=== PATIENT | male | born 1955 | race Caucasian/White ===

== ENCOUNTER → 2023-02-18 13:26 | Outpatient (CLI) | payer MEDICARE, SELFPAY ==
--- NOTE | ~2023-02-18 | CT_ITS ---
EXAMINATION: CT abdomen pelvis wo con DATE: 02/18/2023 13:41 INDICATION: History of urolithiasis TECHNIQUE: Computed tomography (CT) of the abdomen and pelvis was performed without intravenous contr ast. The dose-length product (DLP) was 849.62 mGy-cm. Automated exposure control and iterative recons truction technique were employed. COMPARISON: 11/25/2011 FINDINGS: Minimal dependent atelectasis is present in the lung bases. The heart size is normal. Calci fied pulmonary nodules and calcified right hilar lymph nodes are consistent with old granulomatous di sease. Punctate calcifications in an otherwise normal spleen likely represent healed granulomatous di sease. There is a 4.1 cm mass of the left hepatic lobe previously characterized as a hemangioma. The spleen, pancreas, and adrenal glands are normal. There is a 3.1 cm soft tissue density partially exop hytic mass of the left mid kidney. There is an 11 mm cyst of the right kidney. No stones are identifi ed in the kidneys, ureters, or bladder. No hydronephrosis or hydroureter. No pathologically enlarged abdominal or pelvic lymph nodes are identified. No free intraperitoneal gas or evidence of bowel obst ruction. The appendix is normal. There is an umbilical hernia containing fat. There is mild lumbar sp ondylosis. IMPRESSION: 1. Left kidney mass concerning for renal cell carcinoma. Further evaluation by MRI or CT without and with contrast is recommended. 2. No urolithiasis identified. Reviewed, dictated and finalized at location B.
== END ==
PROVIDERS: PCP Internal Medicine; Visit Provider Internal Medicine
DX: R10.9 Unspecified abdominal pain (principal); Z87.442 Personal history of urinary calculi
CPT/HCPCS: 74176

== ENCOUNTER → 2023-03-04 08:28 | Outpatient (CLI) | payer MEDICARE, SELFPAY ==
--- NOTE | ~2023-03-04 | MR_ITS ---
MRI of the abdomen: Clinical indication: Left renal mass. Technique: Coronal SSFSE ARC, WATER:coronal LAVA-FLEX, Coronal 2D FIESTA FatSat, Axial SSFSE BH ARC, Axial 3D DualEcho BH, Axial SSFSE-IR, Axial DWI b=500, Axial 2D FIESTA FatSat, pre and dynamic postco ntrast Axial LAVA ARC, postcontrast Coronal In and Opposed phase LAVA FLEX. Following intravenous adm inistration of 20 cc MultiHance gadolinium, T1-weighted fat-sat imaging was performed in the axial an d coronal planes. Comparison: CT scan dated 02/18/2023 Findings: Gallbladder is unremarkable. The common bile duct is normal in course and caliber. No filli ng defects are seen within the CBD. No evidence of intrahepatic biliary ductal dilatation. The pancre atic duct is normal in size. There is probable mild diffuse signal drop off in the liver on out of phase images relative to in pha se images, consistent with diffuse fatty infiltration. There is a lobulated T2 hyperintense lesion me asuring 5.7 cm and the left hepatic lobe, with discontinuous peripheral nodular enhancement with prog ressive fill in. There is a smaller, similar appearing lesion in the posterior right hepatic lobe, me asuring 1.6 cm in diameter. These are consistent with hemangiomas. There is a 3.3 cm ovoid mass in the left kidney, T1 and T2 hypointense, with probable mild postcontra st enhancement. Small simple right renal cyst noted. No hydronephrosis. Adrenal glands, spleen, and p ancreas are unremarkable. No lymphadenopathy. No aortic aneurysm. No ascites. Impression: 3.3 cm circumscribed left renal mass, with mild postcontrast enhancement. Postcontrast enhancement in dicates a solid lesion, and renal cell carcinoma is a consideration, versus other solid masses. Tissu e sampling or resection advised. Hepatic hemangiomas, as detailed above. Reviewed, dictated and finalized at location . Impression: 3.3 cm circumscribed left renal mass, with mild postcontrast enhancement. Postc ontrast enhancement indicates a solid lesion, and renal cell carcinoma is a con sideration, versus other solid masses. Tissue sampling or resection advised. Hepatic hemangiomas, as detailed above.
== END ==
PROVIDERS: PCP Internal Medicine; Visit Provider Internal Medicine
DX: N28.89 Other specified disorders of kidney and ureter (principal); D18.09 Hemangioma of other sites
CPT/HCPCS: 74183; A9577

== ENCOUNTER → 2023-08-14 10:23 | Outpatient (CLI) | payer MEDICARE, SELFPAY ==
--- NOTE | ~2023-08-14 | CT_ITS ---
EXAMINATION: CT abdomen wo/w con DATE: 08/14/2023 10:53 INDICATION: Malignant neoplasm of the left kidney TECHNIQUE: Computed tomography (CT) of the abdomen was performed without then with 100 mL Omnipaque 3 50 intravenous contrast. The dose-length product (DLP) was 1533.95 mGy-cm. Automated exposure control and iterative reconstruction technique were employed. COMPARISON: 02/18/2023 FINDINGS: Minimal dependent atelectasis is present in the lung bases. The heart size is normal. Calci fied pulmonary nodules and calcified right hilar lymph nodes are consistent with old granulomatous di sease. Punctate calcifications in an otherwise normal spleen likely represent healed granulomatous di sease. There is a 4.1 cm mass of the left hepatic lobe previously characterized as a hemangioma. The pancreas and adrenal glands are normal. The right kidney is unremarkable. There are changes in the le ft kidney, consistent with interval partial nephrectomy and resection of the previously described kid brad mass. No definite residual mass is identified. A fluid collection at the operative site, measurin g up to 4.3 cm, likely reflects a postoperative seroma. There are no pathologically enlarged abdomina l lymph nodes. There is calcified atherosclerosis of the aorta and many of the other arteries. No ysabel e intraperitoneal gas or evidence of bowel obstruction. Infiltration in the subcutaneous tissues of t he anterior abdominal wall to the left of midline likely reflects laparoscopic port site. IMPRESSION: 1. Changes of interval partial left nephrectomy with small postoperative seroma at the surgical site but no definite residual mass. Reviewed, dictated and finalized at location F.
[2023-08-14 10:45] LABS: Estimated Glomerular Filt Rate > 60
== END ==
PROVIDERS: PCP Internal Medicine; Visit Provider Urology
DX: C64.2 Malignant neoplasm of left kidney, except renal pelvis (principal)
CPT/HCPCS: 74170; Q9967

== ENCOUNTER 2023-10-09 13:54 | Outpatient (CLI) | payer OTHER, SELFPAY ==
--- NOTE | 2023-10-09 14:00 | ECG_ITS ---
Measurements Intervals [place] Rate: 71 P: 27 OR: 230 QRS: 42 QRSD: 84 T: 10 QT: 356 QTc: 388 Interpretive Statements SINUS RHYTHM WITH FIRST DEGREE AV BLOCK FREQUENT ATRIAL PREMATURE COMPLEXES DELAYED PRECORDIAL R/S TRANSITION BORDERLINE T WAVE ABNORMALITY- INFERIOR LEADS BASELINE ARTIFACT- I, II, III, AVR, AVL, AVF, V3 ABNORMAL ECG NO PREVIOUS ECG AVAILABLE FOR COMPARISON Electronically Signed On 10-09-2023 20:04:12 [employer]TON PULLER by Aaron Lake D.O.
[2023-10-09 14:24] LABS: Hematocrit 44.2 % (42.0-52.0); Hemoglobin 14.6 g/dL (14.0-18.0)
[2023-10-09 14:39] LABS: INR 1.9; Prothrombin Time 22.7 Seconds (11.1-14.7)
[2023-10-09 14:40] LABS: Partial Thromboplastin Time 31.6 SECONDS (22.3-36.8)
== END 2023-10-09 13:55 | disposition home or self-care (01) ==
LOC: ANHSURGERY 13:59
PROVIDERS: Anesthesiology; PCP Internal Medicine; Visit Provider Surgery Plastic and Reconstructive Surgery
DX: L57.4 Cutis laxa senilis (principal); Z79.01 Long term (current) use of anticoagulants; I10 Essential (primary) hypertension; Z01.818 Encounter for other preprocedural examination
CPT/HCPCS: 36415; 85014; 85018; 85610; 85730; 93005

== ENCOUNTER 2023-10-15 01:49 | Day surgery (SDC) | payer OTHER, SELFPAY ==
[2023-10-08 14:58] VITALS: BMI 30.3
--- NOTE | 2023-10-08 15:09 | PC.NURSE ---
PRE-OP INSTRUCTIONS, PLEASE READ CAREFULLY Report to the Outpatient Waiting Room, entrance under the green pavilion located off [facility], at time _0800_ on date _10/15/23_. Planned Procedure Time: _1000_. Time changes happen often and if your time is changed the preop area will call you the afternoon before. - You and your visitor will be asked to self-screen and do not enter if you have any COVID symptoms. - A mask is optional within the hospital at this time. Patients may have clear liquids (water, carbonated beverages, clear teas, apple juice) until 3 hours prior to surgery (0700 AM) with a maximum of 20 ounces. - No food from midnight until time of surgery Take the following medications with a SIP of water the morning of surgery: _METOPROLOL_ DO NOT STOP ANY OF YOUR OTHER PRESCRIPTION MEDICATIONS PRIOR TO SURGERY ?EXCEPT THE FOLLOWING Medications to discontinue - _WARFARIN & THEN START LOVENOX INSTRUCTED BY DR. GUTIERREZ Medications to discontinue per ANESTHESIA - _MULTIVITAMIN 3 DAYS PRIOR TO SUGERY, Date to take last dose 10/11/23_ Please no make-up, nail yakut, hairspray, perfume, deodorant, or body powder the day of surgery. No jewelry (including any body piercings) or valuables the day of surgery, leave them at home. Please take a shower or bath the night before, or the morning of, surgery with an antibacterial soap. Wear comfortable, loose fitting clothing. - Jewelry must be removed prior to entering the operating room. Rings and piercings that are not removed may be cut off. - The hospital will not accept responsibility for valuables. - Please leave all valuables, including medications, at home the day of surgery. If you are going home after surgery, a licensed motor bus driver must drive you home. - NO public transportation without another adult if you receive anesthesia. - We recommend that an adult stay with you for 24 hours following discharge. - We also recommend that you do not drive, make important decision, drink alcoholic beverages, or take any drugs that were not prescribed by your health care provider for at least 24 hours after your discharge time. Follow any additional instructions given to you from your surgeon. If you or anyone in your household have experienced Covid symptoms in the past week, please notify your surgeon or the nurse liaison at the phone number below for possible testing. Telephone instructions given to _PT'S SO - DEBBIE__and asked if any additional questions and then verbalized understanding. Patient advised to call surgeon office or pre surgery nurse liaison [phone] if any additional questions.
--- NOTE | 2023-10-14 14:30 | P.PNAN_ITS ---
Anes - Initial Pre Proc Eval Procedure: Operation Date: 10/15/23 10:00 Proposed Procedures p Face Lift - Ruben Rodriguez MD s Neck Lift - Ruben Rodriguez MD Date/Time: 10/14/23 14:30 Surgeon: Ruben Rodriguez MD Pre Op Diagnosis: Skin Laxity Patient Data Age: 68 Gender: M Height: 1.83 m Weight: 101.36 kg Allergies Allergy/AdvReac Type Severity Reaction Status Date / Time No Known Allergies Allergy Verified 10/08/23 14:52 Home Medications Medication Instructions Recorded Confirmed Type metoprolol tartrate 25 mg tablet 25 mg PO BID #180 tabs 07/23/23 10/08/23 Rx multivitamin 1 tablet DAILY 10/08/23 10/08/23 History warfarin 1 mg tablet See Rx Instructions .Route .COMPLEX 10/08/23 10/08/23 History warfarin 4 mg tablet See Rx Instructions .Route .COMPLEX 10/08/23 10/08/23 History warfarin 5 mg tablet See Rx Instructions .Route .COMPLEX 10/08/23 10/08/23 History Patient hx anesthesia problems: none Family hx anesthesia problems: none Results Review: All pre-operative results and documents have been reviewed as part of the pre- operative evaluation. [facility] Past Medical History Medical History (Updated 10/14/23 @ 14:31 by Ben Coker DO) Adenomatous colon polyp Essential (primary) hypertension RAMA on CPAP Pulmonary embolism Surgical History Surgical History H/O colonoscopy with polypectomy Family History Family History Father Family history of malignant neoplasm of stomach Patient's father is Mother Patient's mother is Family history of liver disease Social History Social History Smoking status: Never smoker Second hand tobacco smoke exposure: No Alcohol intake: never Substance use: never Substance use type: does not use Lack of Transportation: No Lack of Food: Never True Current Housing: I Have Housing Concerned About Future Housing: No Difficulty Paying Gas/Electric Bills: No Difficulty Paying for Meds: No Currently Unemployed: No Education: High School Diploma/GED Difficulty w/ Childcare or Family Care: No Living arrangements: other Additional living arrangements comments: LIVES WITH SINGIFICANT OTHER Gender identity (if verbalized by the patient): Male Spiritual care concerns: No Anes - Eval Final PreProcedure Day of Procedure 10/14/23 14:30 Patient weight: obese Heart: regular rate and rhythm Lungs: clear to auscultation Airway: Mallampati scale class III Neurological: alert and oriented Last oral intake: >/= 8 hours ASA classification: III Emergent: no Anesthetic plan: proceed Anesthesia type and monitoring: general ETT and standard monitoring Results Review: All pre-operative results and documents have been reviewed as part of the pre- operative evaluation. Informed Consent: The patient's anesthetic plan and its attendant risks and benefits were discussed with the patient/family/POA. Questions were solicited and answers provided to the satisfaction of the patient/family/POA.
[2023-10-15] VITALS (11 sets, daily range): BP systolic 119–157; BP diastolic 63–86; PULSE 58–104; RESP 12–22; TEMP 36.8–37.3; O2SAT 93–99
--- NOTE | 2023-10-15 07:01 | W.PM.PROC2 ---
Procedure Note - Detailed Date of Procedure 10/15/23 Pre-op Diagnosis Skin Laxity Post-op Diagnosis Same Procedure Performed Face / Neck lift Surgeon Ruben Rodriguez MD Anesthesia General Description of Procedure Preoperatively the risks, benefits, alternatives were discussed in extensive detail. I want her to be very realistic about the risks involved as well as expectations. Reviewed what we can and cannot accomplish. Realistic expectations of outcome. All questions were answered to satisfaction. Consent obtained. Taken to the operating room placed supine on the operating room table. Anesthesia provided by anesthesiology. Prepped and draped in standard sterile fashion. Surgical time-out was taken. Local anesthesia was provided with a tumescent solution using lidocaine, epinephrine, and TXA. Once adequate time for effect a fifteen blade used to make a submental incision. Dissection was continued down identified platysma muscle. Elevated skin flaps with good adiposity just submental. I then went sub platysmal and elevated bilateral. Dissection wsa continued until the bilateral submandibular glands were identified and ptotic. The anterior / medial capsule was incised and gland delivered. Just the superficial / ptotic gland was excised with Bovie electrocautery. Closed capsule with 2-0 Vicryl. Central subplatysmal adiposity was removed to contour. Deep fascia was transversely released at the level of the hyoid. I completed platysmal transection transversely just inferior to the hyoid and repaired the platysma centrally with 2-0 Vicryl. I then proceeded made the remainder of the incisions. I elevated skin flaps with good adequate adiposity of the deep surface to have good contour. Then using a sailboat design I entered Deep to the SMAS and a deep plane facelift was completed. I remained superficial to orbicularis. Throughout the entire procedure we monitored for twitches. A mastoid crevasse was created. I then repaired the SMAS with 2-0 Vicryl. The submandibular platysma was repaired to crevasse with 2-0 Vicryl. Copious irrigated with saline solution and verified strict hemostasis. The skin flaps were just placed into position without any tension. Trimmed as necessary. Preauricular was closed with 5-0 nylon. Postauricular with 5-0 chromic. I did rimma in the hairline. Submental was closed using 3-0 Monocryl followed by running subcuticular 4-0 Monocryl and tissue glue. Neck was secured at undermined areas with 3-0 Nylon as a hemostatic net. Dressings were placed. Patient was awoken without difficulty. All instrument sponge counts were correct at the end of the case. Estimated Blood Loss 50 Drains No Packing No Pathology None sent Complications No immediate complications Condition Stable Disposition PACU
[2023-10-15] MEDS: LACTATED RINGERS 1,000 ML 30 ML IV CONT ×2 (08:45→15:49)
[2023-10-15 08:54] LABS: Urine Cotinine NEGATIVE
[2023-10-15 09:47] LABS: Prothrombin Time 14.1 Seconds (11.1-14.7)
[2023-10-15] MEDS: TRANEXAMIC ACID 1,000MG/ISO100 1,000 MG/100 ML BAG 200 MG IVPB (09:55)
[2023-10-15] MEDS: LIDO 1%/EPINEPHRINE 1:100,000 50 ML VIAL 20 ML INFILTRATE (10:25)
[2023-10-15] MEDS: BUPivacaine HCL 0.25% PF 30 ML VIAL INFILTRATE (10:25)
[2023-10-15] MEDS: TETRACAINE HCL 0.5% OPHTH SOLN 4 ML BTL 1 DROP EACH EYE (10:25)
[2023-10-15] MEDS: NEOMYCIN/POLYMYXIN/DEXAMETH OP OINT 3.5 GM TUBE 1 APPLIC EACH EYE (10:25)
[2023-10-15] MEDS: ceFAZolin 2 GM/D5W 50 ML 2 GM/50 ML BAG IVPB (10:25)
--- NOTE | 2023-10-15 15:51 | SUR.OPER ---
EBL:20ml, Urine:300ml
[2023-10-15] MEDS: HYDROcodone/acetaminophen (*CRX) 5-325 MG TABLET 1 TAB PO (18:11)
== END 2023-10-15 18:43 | disposition home or self-care (01) ==
PROVIDERS: Anesthesiology; PCP Internal Medicine; Visit Provider Surgery Plastic and Reconstructive Surgery
PROC: (CPT 15824; principal; 2023-10-15 10:00)
PROC: (CPT 15819; 2023-10-15 10:00)
DX: L57.4 Cutis laxa senilis (principal); I10 Essential (primary) hypertension; G47.33 Obstructive sleep apnea (adult) (pediatric); E66.9 Obesity, unspecified; Z68.30 Body mass index [BMI] 30.0-30.9, adult; Z99.89 Dependence on other enabling machines and devices; Z79.01 Long term (current) use of anticoagulants; Z86.010 Personal history of colon polyps; Z86.711 Personal history of pulmonary embolism; Z80.0 Family history of malignant neoplasm of digestive organs
CPT/HCPCS: 15828; 80307; 85610; A9270; J0171; J0330; J0690; J1100; J1170; J1200; J2250; J2405; J2704; J3010; J7030; J7120

== ENCOUNTER 2024-11-02 00:32 | Day surgery (SDC) | payer MEDICARE, SELFPAY ==
[2024-10-27 11:27] VITALS: BMI 30.5
--- NOTE | 2024-10-28 15:06 | PC.NURSE ---
Spoke with patient regarding medication warfarin. Patient verbalizes understanding that the last dose is to be taken 10/28/2024 and the Endoscopist will instruct them when to restart after the procedure.
[2024-11-02 09:58] VITALS: BP 158/87; PULSE 81; RESP 18; TEMP 36.3; O2SAT 97; BMI 31.4
[2024-11-02] MEDS: LACTATED RINGERS 1,000 ML 150 ML IV CONT (10:05)
--- NOTE | 2024-11-02 10:40 | P.PNAN_ITS ---
Anes - Initial Pre Proc Eval Procedure: Operation Date: 11/02/24 11:00 Proposed Procedures p Colonoscopy - Mo Donovan MD Date/Time: 11/02/24 10:40 Surgeon: Mo Donovan MD Pre Op Diagnosis: Personal hx of colon polyps Patient Data Age: 69 Gender: M Height: 1.83 m Weight: 104.9 kg Last Vital Signs Temp 36.3 C L 11/02/24 09:58 Pulse 81 11/02/24 09:58 Resp 18 11/02/24 09:58 BP 158/87 H 11/02/24 09:58 Pulse Ox 97 11/02/24 09:58 O2 Del Method Room Air 11/02/24 09:58 Allergies Allergy/AdvReac Type Severity Reaction Status Date / Time No Known Allergies Allergy Verified 11/02/24 09:55 Home Medications ?Medication ?Instructions ?Recorded ?Confirmed ?Type multivitamin 1 tablet PO DAILY 10/08/23 11/02/24 History warfarin 5 mg tablet See Rx Instructions .Route 04/21/24 11/02/24 Rx .COMPLEX #30 tabs warfarin 1 mg tablet See Rx Instructions .Route 10/06/24 11/02/24 Rx .COMPLEX #30 tabs warfarin 4 mg tablet See Rx Instructions .Route 10/19/24 11/02/24 Rx .COMPLEX #30 tabs metoprolol tartrate 25 mg tablet 25 mg PO DAILY 10/27/24 11/02/24 History Patient hx anesthesia problems: none Family hx anesthesia problems: none Results Review: All pre-operative results and documents have been reviewed as part of the pre- operative evaluation. [facility] Past Medical History Medical History Renal mass Essential (primary) hypertension Pulmonary embolism Adenomatous colon polyp RAMA on CPAP Surgical History Surgical History H/O colonoscopy with polypectomy Family History Family History Father Family history of malignant neoplasm of stomach Patient's father is Mother Patient's mother is Family history of liver disease Social History Social History Smoking status: Never smoker Second hand tobacco smoke exposure: No Alcohol intake: never Substance use: never Substance use type: does not use Lack of Transportation: No Lack of Food: Never True Current Housing: I Have Housing Concerned About Future Housing: No Difficulty Paying Gas/Electric Bills: No Difficulty Paying for Meds: No Currently Unemployed: No Education: High School Diploma/GED Difficulty w/ Childcare or Family Care: No Living arrangements: other Additional living arrangements comments: significant other Gender identity (if verbalized by the patient): Male Spiritual care concerns: No Comments DVT Anes - Eval Final PreProcedure Day of Procedure 11/02/24 10:40 Patient weight: normal Heart: regular rate and rhythm Lungs: normal air movement Airway: Mallampati scale class III Neurological: alert and oriented Last oral intake: >/= 8 hours ASA classification: III Anesthetic plan: proceed Anesthesia type and monitoring: general GIVS and standard monitoring Results Review: All pre-operative results and documents have been reviewed as part of the pre- operative evaluation. Informed Consent: The patient's anesthetic plan and its attendant risks and benefits were discussed with the patient/family/POA. Questions were solicited and answers provided to the satisfaction of the patient/family/POA.
--- NOTE | 2024-11-02 10:41 | PM.HPGS ---
History of Present Illness History of Present Illness Consent: Risks, benefits, and alternatives have been discussed and questions answered. Patient agrees to proceed with procedure. Chief complaint: Personal hx of colon polyps Narrative: Ramón Orta Jr. is a 69 year old male with colon polyp in 2019 Review of Systems Review of Systems: All systems reviewed & are unremarkable except as noted in HPI and below PMFSH Past Medical History Medical History Renal mass Essential (primary) hypertension Pulmonary embolism Adenomatous colon polyp RAMA on CPAP Surgical History Surgical History H/O colonoscopy with polypectomy Family History Family History Father Family history of malignant neoplasm of stomach Patient's father is Mother Patient's mother is Family history of liver disease Social History Social History Smoking status: Never smoker Second hand tobacco smoke exposure: No Alcohol intake: never Substance use: never Substance use type: does not use Lack of Transportation: No Lack of Food: Never True Current Housing: I Have Housing Concerned About Future Housing: No Difficulty Paying Gas/Electric Bills: No Difficulty Paying for Meds: No Currently Unemployed: No Education: High School Diploma/GED Difficulty w/ Childcare or Family Care: No Living arrangements: other Additional living arrangements comments: significant other Gender identity (if verbalized by the patient): Male Spiritual care concerns: No Meds Home Medications and Allergies Home Medications ?Medication ?Instructions ?Recorded ?Confirmed ?Type multivitamin 1 tablet PO DAILY 10/08/23 11/02/24 History warfarin 5 mg tablet See Rx Instructions .Route 04/21/24 11/02/24 Rx .COMPLEX #30 tabs warfarin 1 mg tablet See Rx Instructions .Route 10/06/24 11/02/24 Rx .COMPLEX #30 tabs warfarin 4 mg tablet See Rx Instructions .Route 10/19/24 11/02/24 Rx .COMPLEX #30 tabs metoprolol tartrate 25 mg tablet 25 mg PO DAILY 10/27/24 11/02/24 History Allergies Allergy/AdvReac Type Severity Reaction Status Date / Time No Known Allergies Allergy Verified 11/02/24 09:55 Vital Signs Vital Signs - 24 hr 11/02/24 09:58 Temperature 97.4 F L Pulse Rate 81 Respiratory Rate 18 Blood Pressure 158/87 H Pulse Oximetry 97 Oxygen Delivery Room Air Exam Const: General: comfortable and no acute distress HENMT: Face/Nose/Sinus: Normal nares present Eyes: General: appearance normal, both eyes and all related structures Neck: Neck: no JVD Resp: Auscultation: clear to auscultation bilaterally Cardio: Rate: regular rate Rhythm: regular rhythm GI: Inspection: non-distended GI Palp: Yes Soft to palpation Skin: General skin exam: normal color Neuro: General: gait normal Speech: normal speech Extrem: General: normal to inspection Psych: Mental Status: mental status grossly normal Assessment and Plan Assessment and plan (1) Adenomatous colon polyp: Code(s): D12.6 - Benign neoplasm of colon, unspecified Status: Acute Assessment and Plan: colonoscopy
[2024-11-02 10:57] VITALS: BP 131/76; PULSE 65; RESP 25; O2SAT 95
[2024-11-02 11:07] VITALS: BP 162/86; PULSE 60; RESP 21; O2SAT 97
[2024-11-02 11:17] VITALS: BP 167/88; PULSE 61; RESP 24; O2SAT 97
--- OUTSIDE RECORDS SUMMARY | 2024-11-07 09:24 | XMS_ITS | Encounter Summary ---
Author Organization [facility] Address [address] [place] [address] Care Team Providers Care Metal Bonding Assembler Name Role Phone Biju Ang DO Primary Care Provider [phone] Encounter Details Date Type Department Care Team (Latest Contact Info) Description 01/22/2024 Travel Social History Tobacco Use Types Packs/Day Years Used Date Smoking Tobacco: Never Smokeless Tobacco: Never Alcohol Use Standard Drinks/Week Comments Yes 0 (1 standard drink = 0.6 oz pur e alcohol) Sex and Gender Information Value Date Recorded Sex Assigned at Not on file Gender Identity Not on file Sexual Orientation Not on file documented as of this encounter Plan of Treatment Not on file documented as of this encounter Visit Diagnoses Not on filedocumented in this encounter Care Teams Metal Bonding Assembler Relationship Specialty Start Date End Date Biju Ang DO [address] [facility] [address] [place] [address] PCP - General 06/17/13 documented as of this encounter
--- OUTSIDE RECORDS SUMMARY | 2024-11-07 09:24 | XMS_ITS | Encounter Summary ---
Author Organization [facility] Address [address] [facility] [place] [address] Care Team Providers Care And Drying Supervisor Cooking Casing Name Role Phone Biju Ang DO Primary Care Provider Encounter Details Date Type Department Care Team (Latest Contact Info) Description 03/04/2024 Travel Social History Tobacco Use Types Packs/Day [...] on filedocumented in this encounter Care Teams And Drying Supervisor Cooking Casing Relationship Specialty Start Date End Date Biju Ang DO [address] [facility] [address] [place] [address] PCP - General 06/17/13 documented as of this encounter
--- OUTSIDE RECORDS SUMMARY | 2024-11-07 09:24 | XMS_ITS | Encounter Summary ---
Author Organization [facility] Address [address] [facility] [place] [address] Care Team Providers Care Bpm Architect Name Role Phone Biju Ang DO Primary Care Provider +1- [phone] Reason for Visit * Reason Onset Date Comments Question 01/22/2024 Encounter Details Date Type Department Care Team (Late st Contact Info) Description 01/22/2024 Telephone [facility] - Dermatology [address] [place] [address], [facility] [place] [id number] Yenny Mack MD [address] [place] [address] [address] [place] [address] Question Social History Tobacco Use Types Packs/Day Years Used Date Smoking Tobacco: Never Smokeless Tobacco: Never Alcohol Use Standard Drinks/Week Comments Yes 0 (1 standard drink = 0.6 oz pur e alcohol) Sex and Gender Information Value Date Recorded Sex Assigned at Not on file Gender Identity Not on file Sexual Orientation Not on file documented as of this encounter Miscellaneous Notes * Telephone Encounter - Erin Benjamin - 01/27/2024 10:18 AM CDT Current Provider: Dr. Mack Reason for Call: Pt Called again about being scheduled earlier than his 03/04 appt. Patient Call Back Number: [phone] * Telephone Encounter - Osiel Najera - 01/22/2024 9:51 AM STATION INSTALLATION SUPERVISOR Patient has appt on 03/04 and requested an earlier date because he has an ulcer forming on his ankle. His whole foot is also becoming red and painful. He has a history of trouble with this ankle, which required serious medical intervention. I am contacting Dr. Mack to get him an earlier time. I also encouraged him to upload a photo to Bl[employer] Messenger and gave him the [employer] Messenger contact number. ION INSTALLATION SUPERVISOR documented in this encounter Plan of Treatment Not on file documented as of this encounter Visit Diagnoses Not on filedocumented in this encounter Care Teams Bpm Architect Relationship Specialty Start Date End Date Biju Ang DO [address] [facility] [address] [facility] [address] [place] [address] PCP - General 06/17/13 documented as of this encounter
--- OUTSIDE RECORDS SUMMARY | 2024-11-07 09:24 | XMS_ITS | Patient Health Summary ---
Author Organization [facility] Address [address] [place] [address] Care Team Providers Care Parachute Marker Name Role Phone Biju Ang DO Primary Care Provider [phone]- [phone] Note from [facility],non-owned Affiliates and Associated Physician Practices is amultiple site organization consisting of ambulatory clinics and hospital sitesin [place], [place], [place] and [place]. This disclosure is being madepursuant to the Care Everywhere program and may not contain all information available regarding this patient. Last updated 18.[facility] Allergies No known active allergies Medications * Be aware that medications may not be up to date on this document. Alwaysverify current medications with the patient. * metoprolol tartrate (LOPRESSOR) 25 MG tablet(Started 11/02/2019) TK 1 T PO BID * warfarin (COUMADIN) 5 MG tablet(Started 10/14/2019) TK 1 T PO QD UTD * warfarin (COUMADIN) 4 MG tablet(Started 10/14/2019) TK 1 T PO QD * warfarin (COUMADIN) 1 MG tablet(Started 08/25/2019) TK THREE TS PO QD UTD * Control Gel Formula Dressing (DUODERM CGF EXTRA THIN) dressing(Started 11/16/2019) Apply to leg wound every 7 days 5 refills by 11/15/2020 * mupirocin (Bactroban) 2 % ointment(Started 02/03/2024) Apply thin layer to affected area of left ankle weekly until wound is healed. 30 day supply. 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 11/24/2010 Social History Tobacco Use Types Packs/Day Years Used Date Smoking Tobacco: Never Smokeless Tobacco: Never Tobacco Cessation:Counseling Given: Not Answered Alcohol Use Standard Drinks/Week Comments Yes 0 (1 standard drink = 0.6 oz pur e alcohol) Sex and Gender Information Value Date Recorded Sex Assigned at Not on file Gender Identity Not on file Sexual Orientation Not on file Procedures * MA TANGNTL BX SKIN SINGLE LES(Performed 03/04/2024) Performed for Neoplasm of uncertain behavior of skin * DERMATOPATHOLOGY(Performed 03/04/2024) Performed for Neoplasm of uncertain behavior of skin * MA DESTRUCT BENIGN LESION, 1-14(Performed 02/03/2024) Performed for Other viral warts * CULTURE AEROBIC(Performed 02/03/2024) Performed for Ulcer of left lower extremity, limited to breakdown of skin (HCC) * MA TANGNTL BX SKIN SINGLE LES(Performed 11/22/2019) Performed for Neoplasm of uncertain behavior of skin * DERMATOPATHOLOGY(Performed 11/16/2019) Performed for Neoplasm of uncertain behavior of skin * CULTURE AEROBIC(Performed 11/16/2019) Performed for Skin ulcer, limited to breakdown of skin (HCC) * DERMATOPATHOLOGY(Performed 08/19/2017) * DERMATOPATHOLOGY(Performed 09/20/2015) * CULTURE FUNGUS SKIN HAIR NAILS(Performed 07/13/2013) * CULTURE AEROBIC(Performed 07/13/2013) * DERMATOPATHOLOGY(Performed 05/02/2011) * DERMATOPATHOLOGY(Performed 05/02/2011) * CULTURE AEROBIC(Performed 02/24/2011) * CULTURE AEROBIC(Performed 02/14/2011) * CULTURE AEROBIC(Performed 02/07/2011) * PATHOLOGY/GENETICS HISTORICAL-ONBASE(Performed 01/17/2011) * PATHOLOGY/GENETICS HISTORICAL-ONBASE(Performed 01/03/2011) * PATHOLOGY/GENETICS HISTORICAL-ONBASE(Performed 12/28/2010) * PATHOLOGY/GENETICS HISTORICAL-ONBASE(Performed 12/13/2010) * PATHOLOGY/GENETICS HISTORICAL-ONBASE(Performed 12/06/2010) * PATHOLOGY/GENETICS HISTORICAL-ONBASE(Performed 11/22/2010) Results * MA TANGNTL BX SKIN SINGLE LES (03/04/2024 2:47 PM CDT) Narrative Yenny Mack MD - 03/04/2024 2:47 PM CDT Pam Duran MD ? 03/04/2024 ??2:47 PM Risks, benefits and alternatives to shave biopsy were discussed with the patient. Verbal consent was obtained. Encounter Diagnoses Name Primary? ? ? Other viral warts ? Neoplasm of uncertain behavior of skin Yes Location: R upper lip Skin prep: Alcohol Anesthesia: Lidocaine 1% with epinephrine Hemostasis: Electrocautery Dressing and wound care discussed. Specimen(s) placed in a patient labeled container and sent to [facility]. Patient agrees to phone call for results and message if not available. Pam Duran MD PGY-2 Dermatology Resident Yenny Mack MD PROCEDURE/MINOR SURG ICAL ORDERABLES * DERMATOPATHOLOGY (03/04/2024 2:35 PM CDT) Only the most recent of6 resultswithin the time period is included. Case Report Dermatopathology Report ? Case: [id number] ? Authorizing Provider: ??Yenny Mack MD ?Collected: ? 03/04/2024 02:35 PM ? Ordering Location: ? [facility] - ??Received: ?03/04/2024 04:36 PM ? Dermatology ? Pathologist: ? Marianela Gregg MD ? Specimen: ?Skin, right upper lip ? 1:47 PM CDT DERMATOPATHOLOGY LABORATORY Final Diagnosis Specimen A. SKIN, right upper lip: VERRUCA VULGARIS (B07.8) (see microscopic description) 1:47 PM CDT DERMATOPATHOLOGY LABORATORY Clinical History VV vs BVK much less likely SCC 1:47 PM CDT DERMATOPATHOLOGY LABORATORY Gross Description Specimen A: Received is one formalin filled container labeled with the patient's name and designated right upper lip. The specimen consists of a shave biopsy measuring 1x1x1 mm. Jar 0. 1:47 PM CDT DERMATOPATHOLOGY LABORATORY Microscopic Description Specimen A. SKIN, right upper lip: There is digitated epidermal hyperplasia, hypergranulosis, vacuolated granular layer cells, and compact hyperorthokeratosis . Additional deeper sections were obtained and reviewed. 1:47 PM CDT DERMATOPATHOLOGY LABORATORY Disclaimer An external and internal positive and negative controls are appropriate for the histochemical, immunohistochemical and immunofluorescence stain(s) in this case (if any), except where stated explicitly. The performance characteristics of the stain(s) cited in this report were developed and its performance characteristic determined by the Dermatopathology Laboratory at [facility], directed by Dr. Luis Armenta. These tests need not be, and therefore are not, approved by the [place] Food and Drug Administration. The tests are used for clinical purposes. Billing Codes Specimen Charges Stain Charges 19754 1 1:47 PM CDT DERMATOPATHOLOGY LABORATORY Embedded Images 1:47 PM CDT DERMATOPATHOLOGY LABORATORY Pathology/Cytolo gy TISSUE SPECIMEN FROM SKIN / Unknown 03/04/2024 2:35 PM CDT 03/04/2024 4:36 PM CDT Yenny Mack MD LAB - PATHOLOGY/CYTO LOGY ORDERABLES DERMATOPATHOLOGY LABORATORY [facility] Department of Dermatology [address], [address] [phone] * MA DESTRUCT BENIGN LESION, 1-14 (02/03/2024 3:24 PM CDT) Narrative Yenny Mack MD - 02/03/2024 3:24 PM CDT Blas Garza DO ? 02/03/2024 ??3:24 PM Diagnosis and treatment options discussed. Cryotherapy (Liquid Nitrogen) to 1 wart for 8-10 seconds (see office visit note for locations). Number of cycles: 1. Wound care reviewed. Blas Garza DO PGY-4 Dermatology Resident Yenny Mack MD PROCEDURE/MINOR SURG ICAL ORDERABLES * CULTURE AEROBIC (02/03/2024 2:52 PM CDT) Only the most recent of6 resultswithin the time period is included. Pathologist [facility] Culture [facility] Comment: ??CULTURE, AEROBIC BACTERIA ?Micro Number: ?[id number] ??Test Status: ? Final ??Specimen Source: ?? Skin ??Specimen Quality: ??Adequate ??Result: ?Growth of skin alisia (note: Growth does not ? include S. aureus, beta-hemolytic Streptococci ? or P. aeruginosa). Test Performed at: [id number] ??[id number] FITO ABEL MD Microbiology TISSUE SPECIMEN FROM SKIN / Unknown 02/03/2024 2:52 PM CDT 02/04/2024 2:35 AM CDT Yenny Mack MD LAB - MICROBIOLOGY O [facility] [address] [address] * MA TANGNTL BX SKIN SINGLE LES (11/22/2019 8:03 PM FIRE CHIEF) Narrative Yenny Mack MD - 11/22/2019 8:03 PM FIRE CHIEF Yenny Mack MD ? 11/22/2019 ??8:03 PM Risks, benefits and alternatives to shave biopsy were discussed with the patient. Verbal consent was obtained. Encounter Diagnoses Name Primary? ? ? Skin ulcer, limited to breakdown of skin Yes ? ? Neoplasm of uncertain behavior of skin ?? Location: left helix Skin prep: Alcohol Anesthesia: 1% lidocaine with epinephrine Hemostasis: Aluminum chloride Dressing and wound care discussed. Specimen(s) placed in a patient labeled container and sent to [facility]. Patient agrees to phone call for results and message if not available. y Procedure performed by Dr. Spencer I was present for the izaguirre portion of procedures MD Yenny Oviedo MD Yenny Mack MD PROCEDURE/MINOR SURG ICAL ORDERABLES * CULTURE FUNGUS SKIN HAIR NAILS (07/13/2013 11:00 AM CDT) Culture Fungus SEE NOTE [facility] ([facility]) Comment: ??CULTURE, FUNGUS, SKIN, HAIR OR NAILS ?MICRO NUMBER: ?[id number] ??TEST STATUS: ? FINAL ??SPECIMEN SOURCE: ?? LEFT LATERAL ANKLE ??SPECIMEN QUALITY: ??ADEQUATE ??RESULT: ?No fungal growth at 4 Weeks NO COLLECTION DATE RECEIVED. WE HAVE USED THE DATE THE SPECIMEN WAS RECEIVED BY THIS LABORATORY THE COLLECTION DATE. IF THIS IS INCORRECT, PLEASE CONTACT CLIENT SERVICES. PHONE NUMBER: [phone] Test Performed at: [email or web address] ??[id number] SINDI HAMMER DO, MPH Skin (tissue) specimen (specimen) 07/13/2013 11:00 AM CDT 06/18/2013 3:00 AM CDT Narrative [facility] ([facility]) - 07/13/2013 11:00 AM CDT Left lateral ankle Specimen Type->Skin Yenny Mack MD LAB - MICROBIOLOGY O [facility] ([facility]) * PATHOLOGY/GENETICS HISTORICAL-ONBASE (01/17/2011) Only the most recent of6 resultswithin the time period is included. 01/17/2011 Historical Provider LAB - CHEMISTRY [facility] Care Teams Parachute Marker Relationship Specialty Start Date End Date Biju Ang DO [address] [facility] [address] [place] [address] PCP - General 06/17/13
--- OUTSIDE RECORDS SUMMARY | 2024-11-07 09:24 | XMS_ITS | Clinical Summary ---
Author Organization [facility] Address [address] [place] [address] Care Team Providers Care Oil Well Shooter Name Role Phone Biju Ang DO Primary Care Provider [phone]- [phone] Source Comments [facility],non-owned Affiliates and Associated Physician Practices is amultiple site organization consisting of ambulatory clinics and hospital sitesin [place], [place], [place] and [place]. This disclosure is being madepursuant to the Care Everywhere program and may not contain all information available regarding this patient. Last updated 18.[facility] Allergies No known active allergies Medications * Be aware that medications may not be up to date on this document. Alwaysverify current medications with the patient. Medication Sig Dispensed Refills Start Date End Date Status metoprolol tartrate (LOPRESSOR) 25 MG tablet TK 1 T PO BID 11/02/2019 Active warfarin (COUMADIN) 5 MG tablet TK 1 T PO QD UTD 10/14/2019 Active warfarin (COUMADIN) 4 MG tablet TK 1 T PO QD 10/14/2019 Active warfarin (COUMADIN) 1 MG tablet TK THREE TS PO QD UTD 08/25/2019 Active Control Gel Formula Dressing (DUODERM CGF EXTRA THIN) dressingIndications: Skin ulcer, limited to breakdown of skin (HCC) Apply to leg wound every 7 days 20 Each 5 11/16/2019 Active Additional Information Patient not taking.Reported on 02/03/2024 mupirocin (Bactroban) 2 % ointmentIndications: Ulcer of left lower extremity, limited to breakdown of skin (HCC) Apply thin layer to affected area of left ankle weekly until wound is healed. 30 day supply. 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 11/24/2010 Family History Medical History Relation Name Comments Cancer Father Allergy (Severe) Neg Hx Asthma Neg Hx CVA Neg Hx Cancer - Breast Neg Hx Cancer - Other Neg Hx Cancer - Skin, Melanoma Neg Hx Cancer - Skin, Non Melanoma Neg Hx Eczema Neg Hx Hemophilia Neg Hx Psoriasis Neg Hx Rashes/Skin Problems Neg Hx Relation Name Status Comments Father Social History Tobacco Use Types Packs/Day Years Used Date Smoking Tobacco: Never Smokeless Tobacco: Never Tobacco Cessation:Counseling Given: Not Answered Alcohol Use Standard Drinks/Week Comments Yes 0 (1 standard drink = 0.6 oz pur e alcohol) Sex and Gender Information Value Date Recorded Sex Assigned at Not on file Gender Identity Not on file Sexual Orientation Not on file Plan of Treatment Health Maintenance Due Date Last Done Comments COLOGUARD (AGES 45-75) - COL ON CA SCREENING 1956 COLON MONITORING 1956 COLONOSCOPY - COLON CA SCREENING 1956 CT COLONOGRAPHY - COLON CA SCREENING 1956 Colorectal Cancer Screening 1956 FIT - COLON CA SCREENING 1956 FLEX SIG - COLON CA SCREENING 1956 LIPID TESTING 1956 HEPATITIS C SCREENING 09/27/1974 DTAP/TDAP/TD VACCINES (1 - Tdap) 1975 ZOSTER VACCINE (1 of 2) 2006 PNEUMOCOCCAL VACCINE 65+ (1 of 1 - PCV) 2021 DEPRESSION SCREENING 11/18/2023 MEDICARE AWV ? CALENDAR YEAR 2023 COVID-19 VACCINE (1 - 2023-2 5 season) 2024 INFLUENZA VACCINE (#1) 2024 Respiratory Syncytial Virus (RSV) Vaccine Pt: or over 60 yrs (1 - 1-dose 75+ series) 2031 HEPATITIS B VACCINE Aged Out No longe r eligible based on patient's age to complete this topic HIB VACCINE Aged Out No longer eligi ble based on patient's age to complete this topic HPV VACCINE Aged Out No longer eligi ble based on patient's age to complete this topic MENINGOCOCCAL VACCINE Aged Out No sandhya anahi eligible based on patient's age to complete this topic Care Teams Oil Well Shooter Relationship Specialty Start Date End Date Biju Ang DO [address] [facility] [address] [place] [address] PCP - General 06/17/13
--- OUTSIDE RECORDS SUMMARY | 2024-11-07 09:24 | XMS_ITS | Encounter Summary ---
Author Organization [facility] Address [address] [place] [address] Care Team Providers Care Order Builder Name Role Phone Biju Ang DO Primary Care Provider [phone]- [phone] Reason for Visit * Reason Onset Date Comments Concerns 01/22/2024 Encounter Details Date Type Department Care Team (Late st Contact Info) Description 01/22/2024 Telephone [facility] - General Dermatology [address] [place] [address] Yenny Mack MD [address] [facility] [address] [place] [address] Concerns Social History Tobacco Use Types Packs/Day Years [...] encounter Miscellaneous Notes * Telephone Encounter - Yenny Mack MD - 01/25/2024 12:24 AM FABRICATOR ASSEMBLER [employer]AL [employer]ODU[employer] PCCs Can schedule with me on afternoon of February 02 Thank you. ICATOR ASSEMBLER [employer]ODU[employer] * Telephone Encounter - Erin Benjamin - 01/22/2024 9:25 AM CST Pt called with concern about his ankle. He has an open wound on his ankle about the size of a dime. He has been taking care of the wound the way she previously advised him in 2019. Pt has appt on 03/04 but would like to be seen sooner if possible. ICATOR ASSEMBLER METAL [employer]ODUCTS documented in this encounter Plan of Treatment Not on file documented as of this encounter Visit Diagnoses Not on filedocumented in this encounter Care Teams Order Builder Relationship Specialty Start Date End Date Biju Ang DO [address] [facility] [address] [address] PCP - General 06/17/13 documented as of this encounter
--- OUTSIDE RECORDS SUMMARY | 2024-11-07 09:24 | XMS_ITS | Encounter Summary ---
Author Organization [facility] Address [address] [facility] [place] [address] Care Team Providers Care Funnel Setter Name Role Phone Biju nAg DO Primary Care Provider Encounter Details Date Type Department Care Team (Latest Contact Info) Description 02/24/2024 Travel Social History Tobacco Use Types Packs/Day [...] on filedocumented in this encounter Care Teams Funnel Setter Relationship Specialty Start Date End Date Biju Ang DO [address] [facility] [address] [place] [address] PCP - General 06/17/13 documented as of this encounter
--- OUTSIDE RECORDS SUMMARY | 2024-11-07 09:24 | XMS_ITS | Encounter Summary ---
Author Organization [facility] Address [address] [facility] [place] [address] Care Team Providers Care Meat Specialist Name Role Phone Biju Ang DO Primary Care Provider [phone] Encounter Details Date Type Department Care Team (Latest Contact Info) Description 02/10/2024 Travel Social History Tobacco Use Types Packs/Day [...] on filedocumented in this encounter Care Teams Meat Specialist Relationship Specialty Start Date End Date Biju Ang DO [address] [facility] [address] [place] [address] PCP - General 06/17/13 documented as of this encounter
--- OUTSIDE RECORDS SUMMARY | 2024-11-07 09:24 | XMS_ITS | Encounter Summary ---
Author Organization [facility] Address [address] [facility] [place] [address] Care Team Providers Care Line Operator Name Role Phone Tye Angbrad Doe DO Primary Care Provider [phone]- [phone] Reason for Visit * Reason Comments Skin Lesion Spot on outer left n ostril, eyebrow on right eye, look at leg Wart Upper right lip Encounter Details Date Type Department Care Team (Late st Contact Info) Description 03/04/2024 2:10 PM CDT Office Visit [facility] - Dermatology [address] [place] [address], [facility] [place] [address] Yenny Mack MD [address] [place] [address] [place] [id number] Neoplasm of uncertain behavior of skin (Primary Dx); Other viral warts Social History Tobacco Use Types Packs/Day Years Used Date Smoking Tobacco: Never Smokeless Tobacco: Never Alcohol Use Standard Drinks/Week Comments Yes 0 (1 standard drink = 0.6 oz pur e alcohol) Sex and Gender Information Value Date Recorded Sex Assigned at Not on file Gender Identity Not on file Sexual Orientation Not on file documented as of this encounter Patient Instructions * Patient Instructions* Pam Duran MD - 03/04/2024 2:24 PM CDT Thank you for visiting [facility] Dermat[facility]! Please review your after visit instructions below. Today we spoke about your skin exam Please follow-up in 1 year or earlier as needed. Keep vaseline on L medial ankle and use telfa non-sticky pads Our cosmetics clinic number is [phone] SHAVE BIOPSY At your appointment today, we took a small sample of your skin for further evaluation by a pathologist through a procedure called a shave biopsy. We typically receive the results within 7-10 days, atwhich time we will contact you with the results. Wound care after shave biopsy If bleeding occurs, hold firm pressure on the area for ten minutes with no peeking. Keep your bandage on and keep the wound dry until tomorrow, after which you may remove the bandage and shower as usual. Gently clean the wound twice a day with mild soap and water and pat dry. After each cleaning, apply plain petroleum jelly (Vaseline) or Aquaphor and a bandage if needed. Try not to let a scab form. If a scab forms, soak the scab with warm water several times per day to gently remove it. Continue wound care until the area is healed. Should you notice increasing redness, swelling, pain, fever or drainage, please contact the clinic: - [facility]: - [facility]: - After hours or weekends: - ask to speak with the dermatology resident special education resource room teacher documented in this encounter Progress Notes * Yenny Mack MD - 03/04/2024 3:12 PM CDT Attending Physician's Note Resident's assessment and care plan reviewed. I personally interviewed and examined the patient. I agree with the history of present illness, physical exam, and assessment and plan as documented by the Resident today. 03/04/2024 Yenny Mack MD * Pam Duran MD - 03/04/2024 2:14 PM CDT Chief Complaint Patient presents with ??? Skin Lesion Spot on outer left nostril, eyebrow on right eye, look at leg ??? Wart Upper right lip HPI: Ramón Maier Jr Hopper is a 68 year old male who presents for the concern(s) below. LV 01/2024 Spot check: L ala red spot x years, sometimes bleeds. Wants removed. 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 PMHx, PSHx, FH, ALL, Meds, & SH were reviewed. - Hx ocular histoplasmosis Physical Exam: Skin examination was conducted and was normal with the following exceptions: - L medial malleous w/ healing skin and surrounding stellate well-healed, atrophic scar - R upper lip w/ 1 mm skin colored verrucous papule - L ala & R eyebrow w/ ~2 mm blanchanble red papule Assessment/Plan: Ramón Maier Jr was seen today for lesions. 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, not yet at goal but improving with Unna boots - Discussed Dx, etiology, clinical course, Tx options, and expectations - Stop Unna boots and protect area with vaseline - Future considerations if worsening again: Unna boots again, Purachol, pentoxifylline Frazier angioma v angiofibroma, L nasal ala - Benign, reassured, cosmetics phone # provided Frazier angiomas, R eyebrow - Benign, reassured patient Neoplasm of uncertain behavior of skin - location: R upper lip - ddx: VV vs BVK v much less likely SCC - shave biopsy (see procedure note) - wound care instructions provided - will call patient with biopsy results. If intervention is indicated, will make arrangements at that time RTC in 1 year for full body skin exam Pam Duran MD PGY-2 Dermatology Resident documented in this encounter Procedure Notes * Pam Duran MD - 03/04/2024 2:47 PM CDTAssociated Order(s): PROC BIOPSY OF SKIN LESION Procedure(s): DE TANGNTL BX SKIN SINGLE LES Pre-Procedure Diagnose(s): Neoplasm of uncertain behavior of skin Risks, benefits and alternatives to shave biopsy were discussed with the patient. Verbal consent was obtained. Encounter Diagnoses Name Primary? Other viral warts ??? Neoplasm of uncertain behavior of skin Yes Location: R upper lip Skin prep: Alcohol Anesthesia: Lidocaine 1% with epinephrine Hemostasis: Electrocautery Dressing and wound care discussed. Specimen(s) placed in a patient labeled container and sent to [facility]. Patient agrees to phone call for results and message if not available. Pam Duran MD PGY-2 Dermatology Resident Associated attestation - Yenny Mack MD - 03/04/2024 3:12 PM CDT I was present for the izaguirre portion of procedures See procedure note. documented in this encounter Plan of Treatment Not on file documented as of this encounter Procedures Procedure Name Priority Date/Time Associated Diagnosis Comments DE TANGNTL BX SKIN SINGLE LES Routine 03/04/2024 2:47 PM CDT Neoplasm of uncertain behavior of skin DERMATOPATHOLOGY Routine 03/04/2024 2:35 PM CDT Neoplasm of uncertain behavior of skin documented in this encounter Results * DE TANGNTL BX SKIN SINGLE LES (03/04/2024 2:47 [...] a patient labeled container and sent to [facility]. Patient agrees to phone call for results and message if not available. Pam Duran MD PGY-2 Dermatology Resident Yenny Mack MD PROCEDURE/MINOR SURG ICAL ORDERABLES * DERMATOPATHOLOGY (03/04/2024 2:35 PM CDT) Case Report Dermatopathology Report ? Case: [id number] ? Authorizing Provider: ??Yenny Mack MD ?Collected: ? 03/04/2024 02:35 PM ? Ordering Location: ? [facility] - ??Received: ?03/04/2024 04:36 PM ? Dermatology ? Pathologist: ? Marianela Gregg MD ? Specimen: ?Skin, right upper lip ? 4 1:47 PM CDT DERMATOPATHOLOGY LABORATORY Final Diagnosis Specimen A. SKIN, right upper lip: VERRUCA VULGARIS (B07.8) (see microscopic description) 4 1:47 PM CDT DERMATOPATHOLOGY LABORATORY Clinical History [...] characteristic determined by the Dermatopathology Laboratory at [facility], directed by Dr. Luis Armenta. These tests need not be, and therefore are not, approved by the [place] Food and Drug Administration. The tests are used for clinical purposes. Billing Codes Specimen Charges Stain Charges 73260 1 4 1:47 PM CDT DERMATOPATHOLOGY LABORATORY Embedded Images 1:47 PM CDT DERMATOPATHOLOGY LABORATORY Pathology/Cytolo gy TISSUE SPECIMEN FROM SKIN / Unknown 03/04/2024 2:35 PM CDT 03/04/2024 4:36 PM CDT Yenny Mack MD LAB - PATHOLOGY/CYTO LOGY ORDERABLES DERMATOPATHOLOGY LABORATORY [facility] Department of Dermatology [facility] Specialized Medicine [facility] [facility], 3rd Floor [address] [phone] documented in this encounter Visit Diagnoses Diagnosis Neoplasm of uncertain behavior of skin- Primary Other viral warts documented in this encounter Care Teams Line Operator Relationship Specialty Start Date End Date Biju Ang DO [address] [facility] [address] [facility] [address] [place], [place] [id number] PCP - General 06/17/13 documented as of this encounter
--- OUTSIDE RECORDS SUMMARY | 2024-11-07 09:24 | XMS_ITS | Encounter Summary ---
Author Organization [facility] Address [address] [facility] [place] [address] Care Team Providers Care Transport Conductor Name Role Phone AshiaTyeBijubrad Doe DO Primary Care Provider [phone]- [phone] Reason for Visit * Reason Comments Lesions Left ankle, lip, lef t ala Encounter Details Date Type Department Care Team (Late st Contact Info) Description 02/03/2024 1:40 PM CDT Office Visit [facility] - General Dermatology [address] [place] [address] Yenny Mack MD [address] [facility] [address] [place] [address] Ulcer of left lower extremity, limited to breakdown of skin (HCC) (Primary Dx); Other viral warts; Frazier angioma Social History Tobacco Use Types Packs/Day Years [...] this encounter Patient Instructions * Patient Instructions* Blas Garza DO - 02/03/2024 2:47 PM CDT Thank you for visiting the dermatology clinic today. Please schedule a follow-up visit in 6 week(s)or earlier as needed. Plan to start weekly unna boots to help the skin heal. Mupirocin will help with wound care as well. Bacterial culture results can take 1 week to return. Please call our cosmetics clinic ([phone]) to schedule an evaluation for your cosmetic concerns (note this evaluation costs $100 and is not covered by insurance). For skin cancer prevention: We recommend DAILY sun protection with at least SPF 30 and MONTHLY selfskin exams. Examine your moles for any changes. Alert us of any moles that are asymmetrical, have irregular borders, more than one color in a mole, larger than end of a pencil eraser, or anything that is changing over time (A-B-C-D-Es of Melanoma). See below for sun screen recommendations. SUNSCREENS UVA and UVB PROTECTION Sunlight consists of two types of light that can cause or worsen most skin problems: UVA (ultraviolet A) UVB (ultraviolet B) Brown spots Skin cancers Wrinkles Sunburn Aging Tanning Rosacea Less variation with seasons Strongest in summer All year round All day strong Peak hours 10am to 2pm No rating system available SPF rates UVB protection Passes through glass and clouds Sunscreens that block both UVA and UVB light contain: Zinc Oxide (should contain at least 4% zinc oxide) Titanium Dioxide Parsol or Avobenzone (additives improve stability of Avobenzone) There are other UVA blocking ingredients but they are not as complete as these three. TIPS/SUGGESTIONS SPF of 30 or higher Zinc Oxide or other UVA block such as Helioplex or Anthelios in product Remember there is no safe UV light???so there is no such thing as a safe suntan. Apply sunscreen daily (even in winter and on cloudy days) and reapply every 2 to 4 hours depending on activity. Approximately one ounce (a shot glass) is necessary to adequately cover the entire body. Approximately one teaspoon is necessary to adequately cover the face documented in this encounter Progress Notes * Yenny Mack MD - 02/11/2024 10:35 PM CDT Attending Physician's Note Resident's assessment and care plan reviewed. I personally interviewed and examined the patient. I agree with the history of present illness, physical exam, and assessment and plan as documented by the Resident today. 02/03/2024 Yenny Mack MD * Racquel Gregg MA - 02/03/2024 3:23 PM CDT Pt had unna boot placed on L lower leg. Cleaned leg and ulcer on L medial lower leg with Cetaphil and Hibiclens, patted dry. Applied Vaseline on L lower leg and top of L foot. Applied thin layer of Silvadene cream on top of ulcer and around it. Applied small xeroform over ulcer as well will Vaseline keeping it in place. Applied non-adhesive and wrapped L lower leg in unna boot, lapping it over 50%. Wrapped L lower leg in kerlex and coband. RTC 02/10/24 Racquel Gregg MA * Blas Garza DO - 02/03/2024 2:22 PM CDT Chief Complaint Patient presents with ??? Lesions Left ankle, lip, left ala HPI: Ramón Orta is a 68 year old male who presents for the concern(s) below. LV 10/2019. Skin ulcer w/ hx atrophie trice on warfarin + stasis, petroleum jelly, compression, DuoDERM, L helix HAK to base, follow-up 2 mo. Spot check: L ala red spot x years, sometimes bleeds. R upper lip wart like bump x week, can be irritated/itchy. Livedoid vasculopathy/atrophie trice: ulceration x few weeks, has been quiet the past few years, wound care w/ saline & Aquaphor, wearing 20-30 mm Hg compression socks. On warfarin for hx DVT. Did Unna boots in the past. LV hx: Site was tx'd in 2013 [...] following exceptions: - L medial malleous w/ superficial ulceration & surrounding stellate well- healed, atrophic scar - 1+ edema to ankles - R upper lip w/ 1 mm skin colored papule - L ala & R eyebrow w/ ~2 mm blanchanble red papule Assessment/Plan: Ramón Maier Jr was seen today for lesions. 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 - Benign, reassured, (+) itch/irritation - Tx cryo, RBA & wound care reviewed (e.g. dyspigmentation) Frazier angioma, L ala, R eyebrow - Benign, reassured, advised cosmetic removal ~$250, cosmetics phone # provided RTC in 6 week(s) for follow-up or earlier PRN. Blas Garza DO PGY-4 Dermatology Resident documented in this encounter Procedure Notes * Blas Garza DO - 02/03/2024 3:24 PM CDTAssociated Order(s): PROC DESTRUCT BENIGN LESION NOT SKIN TAG Procedure(s): MS DESTRUCT BENIGN LESION, 1-14 Pre-Procedure Diagnose(s): Other viral warts Post-Procedure Diagnose(s): Other viral warts Diagnosis and treatment options discussed. Cryotherapy (Liquid Nitrogen) to 1 wart for 8-10 seconds(see office visit note for locations). Number of cycles: 1. Wound care reviewed. Blas Garza DO PGY-4 Dermatology Resident Associated attestation - Yenny Mack MD - 02/11/2024 10:35 PM CDT I was present for the izaguirre portion of procedures See procedure note. documented in this encounter Plan of Treatment Not on file documented as of this encounter Procedures Procedure Name Priority Date/Time Associated Diagnosis Comments MS DESTRUCT BENIGN LESION, 1-14 Routine 02/03/2024 3:24 PM CDT Other viral warts CULTURE AEROBIC Routine 02/03/2024 2:52 PM CDT Ulcer of left lower extremity, limited to breakdown of skin (HCC) documented in this encounter Results * MS DESTRUCT BENIGN LESION, 1-14 (02/03/2024 3:24 PM CDT) Narrative Yenny Mack MD - 02/03/2024 3:24 PM CDT Blas Garza, DO ? 02/03/2024 ??3:24 PM Diagnosis and treatment options discussed. Cryotherapy (Liquid Nitrogen) to 1 wart for 8-10 seconds (see office visit note for locations). Number of cycles: 1. Wound care reviewed. Blas Garza DO PGY-4 Dermatology Resident Yenny Mack MD PROCEDURE/MINOR SURG ICAL ORDERABLES * CULTURE AEROBIC (02/03/2024 2:52 PM CDT) Culture [facility] Comment: ??CULTURE, AEROBIC BACTERIA ?Micro Number: ?[id number] ??Test Status: ? Final ??Specimen Source: ?? Skin ??Specimen Quality: ??Adequate ??Result: ?Growth of skin alisia (note: Growth does not ? include S. aureus, beta-hemolytic Streptococci ? or P. aeruginosa). Test Performed at: [facility] ??[id number] FITO ABEL MD Microbiology TISSUE SPECIMEN FROM SKIN / Unknown 02/03/2024 2:52 PM CDT 02/04/2024 2:35 AM CDT Yenny Mack MD LAB - MICROBIOLOGY O RDERABLES [address] [address] documented in this encounter Visit Diagnoses Diagnosis Ulcer of left lower extremity, limited to breakdown of skin (HCC)- Primary Other viral warts Frazier angioma Nevus, non-neoplastic documented in this encounter Care Teams Transport Conductor Relationship Specialty Start Date End Date Biju Ang DO [address] [facility] [address] [place] [address] PCP - General 06/17/13 documented as of this encounter
--- OUTSIDE RECORDS SUMMARY | 2024-11-07 09:24 | XMS_ITS | Encounter Summary ---
Author Organization [facility] Address [address] [facility] [place] [address] Care Team Providers Care Wood Sawyer Name Role Phone Biju Ang DO Primary Care Provider [phone]- [phone] Encounter Details Date Type Department Care Team (Latest Contact Info) Description 02/10/2024 1:15 PM CDT Clinical Support [facility] - General Dermatology [address], [facility] [address] [place] [address] Ulcer of left lower extremity, limited to breakdown of skin (HCC) Social History Tobacco Use Types Packs/Day Years Used Date Smoking Tobacco: Never Smokeless Tobacco: Never Alcohol Use Standard Drinks/Week Comments Yes 0 (1 standard drink = 0.6 oz pur e alcohol) Sex and Gender Information Value Date Recorded Sex Assigned at Not on file Gender Identity Not on file Sexual Orientation Not on file documented as of this encounter Progress Notes * Racquel Gregg MA - 02/10/2024 1:27 PM CDT Pt had unna boot changed on L lower leg. Cleaned leg and ulcer on L medial lower leg with Cetaphil and Hibiclens, patted dry. Ulcer is more filled in now, still some dark tissue surrounding it. Some discharge/loose skin came off of ulcer. Applied Vaseline on L lower leg and top of L foot. Per MD applied thin layer of Silvadene cream on top of ulcer and around it. Pt did not provide Mupirocin oint. Applied small xeroform over ulcer as well will Vaseline keeping it in place. Applied non-adhesive and wrapped L lower leg in unna boot, lapping it over 50%. Wrapped L lower leg in kerlex and coband. RTC 02/17/24 ?? Racquel Gregg MA documented in this encounter Plan of Treatment Not on file documented as of this encounter Visit Diagnoses Diagnosis Ulcer of left lower extremity, limited to breakdown of skin (HCC)- Primary documented in this encounter Care Teams Wood Sawyer Relationship Specialty Start Date End Date Biju Ang DO [address] [facility] [address] [place] [address] PCP - General 06/17/13 documented as of this encounter
--- OUTSIDE RECORDS SUMMARY | 2024-11-07 09:24 | XMS_ITS | Encounter Summary ---
Author Organization [facility] Address [address] [facility] [place] [address] Care Team Providers Care Occupational Therapist Per Diem Name Role Phone Biju Ang DO Primary Care Provider +1- [phone] Encounter Details Date Type Department Care Team (Latest Contact Info) Description 02/17/2024 1:15 PM CDT Clinical Support [facility] - General Dermatology [address] [place] [address] Ulcer of left lower extremity, [...] of this encounter Progress Notes * Racquel Gregg, GREG - 02/17/2024 2:12 PM CDT Pt was seen today for an unna boot mabry on L lower leg. Cleaned entire l lower leg and L foot with Cetaphil and Hibiclens, patted dry. Ulcer is smaller than last visit. Some skin did come off with old xerofoam. Applied Vaseline on L lower leg and top of L foot. Pt accidentally left Mupirocin oint. at home. Applied a small amount of Silvadene over ulcer. Applied small xeroform over ulcer as well will Vaseline keeping it in place. Also placed a non-adhesive pad over the xerofoam for add'l protection. Applied unna boot to L lower leg, overlapping 50%. Applied Kerlex and Coband as well. RTC 02/24/24 ?? Racquel Gregg MA documented in this encounter Plan of Treatment Not on file documented as of this encounter Visit Diagnoses Diagnosis Ulcer of left lower extremity, limited to breakdown of skin (HCC)- Primary documented in this encounter Care Teams Occupational Therapist Per Diem Relationship Specialty Start Date End Date Biju Ang DO [address] [facility] [address] [facility] [address] [place] [address] PCP - General 06/17/13 documented as of this encounter
--- OUTSIDE RECORDS SUMMARY | 2024-11-07 09:24 | XMS_ITS | Encounter Summary ---
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 Removed previous unna boot. Washed area with Hibiclens and Cetaphil soap. Rinsed and dried well. Ulcer almost completely closed. Photo taken today. Applied patient supplied Mupirocin ointment, followed by 2x2 Xeroform with Vaseline on top of Xeroform. Then applied non-adherent pad over Xeroform. Applied Vaseline to all intact skin on left lower leg. Applied 10% Zinc oxide unna boot to left lower leg, overlapping 50%. Followed by Kerlix and then Chago. Per Dr. Mack, patient has a follow up appointment on 03/04/24. Patient can skip next unna boot appointment (03/02/24) and have removed at 03/04/24 appointment. Patient can also remove unna boot himself at home and apply a bandage until follow up appointment. Patient expressed understanding. 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
--- OUTSIDE RECORDS SUMMARY | 2024-11-07 09:24 | XMS_ITS | Encounter Summary ---
Author Organization [facility] Address [address] [address] Care Team Providers Care Cloth Laminating Supervisor Name Role Phone GhazalaTye mcneillbrad Doe DO Primary Care Provider [phone] Reason for Visit * Reason Comments General skin of ankle concer n Encounter Details Date Type Department Care Team (Late st Contact Info) Description 11/16/2019 3:10 PM CABLE SPOOLER Office Visit [facility] General Dermatology [address] [place] [address] Yenny Mack MD [address] [facility] [address] [place] [address] Skin ulcer, limited to breakdown of skin (HCC) (Primary Dx); Neoplasm of uncertain behavior of skin Social History Tobacco Use Types Packs/Day Years Used Date Smoking Tobacco: Never Smokeless Tobacco: Never Tobacco Cessation:Counseling Given: No Alcohol Use Standard Drinks/Week Comments Yes 0 (1 standard drink = 0.6 oz pur e alcohol) Sex and Gender Information Value Date Recorded Sex Assigned at Not on file Gender Identity Not on file Sexual Orientation Not on file documented as of this encounter Patient Instructions * Patient Instructions* Hai Foster MD - 11/16/2019 3:58 PM CABLE SPOOLER Thank you for visiting the [facility] Dermatology Clinic today! Please continue the following instructions as we discussed in clinic today: 1) Start plain Vaseline to the area 2) Continue compression hose 3) We will call with culture results, if negative start Duoderm, if positive we may send in a new topical antibiotic Please follow-up in 2 months or sooner if enlarging WOUND CARE INSTRUCTIONS If you have a bandage, please leave your bandage on overnight. Starting the next day, cleanse your wound with mild soap and water and gently pat dry. Avoid soaking in bath or dishwater. Apply petroleum jelly to the wound after cleaning the wound and, as needed, throughout the day to keep the area moist and prevent a scab from forming. Cover the wound with a Band-Aid or appropriate dressing. For pain, you may take acetaminophen (extra or regular strength), 2 tablets every four hours as needed for pain. Do not exceed the recommended limit on the directions. Avoid ibuprofen containing products or related products(Motrin, Advil, Aleve, aspirin, etc) unless prescribed by your physician. Avoid any trauma of activity that may open your surgical wound. If you have not received your biopsy results in two weeks, contact your physician. Notify your physician if you have: Bleeding that does not stop after 20 minutes of continuous pressure. Yellowish/greenish discharge from the treated area Increasing tenderness or pain Warmth of the area and/or fever over 101 F Red streaks up the arm or leg close to the treated area E SPOOLER documented in this encounter Progress Notes * Yenny Mack MD - 11/22/2019 8:01 PM CST Attending Physician's Note Resident's assessment and care plan reviewed; patient interviewed and examined. I agree with the history of present illness, physical exam, and assessment and plan as documented by the Resident today. 11/16/2019 Yenny Mack MD E SPOOLER * Hai Foster MD - 11/16/2019 3:38 PM CST Chief Complaint Patient presents with ??? General skin of ankle concern HPI: Ramón Orta a 64 year old male presents for General. LV: 08/19/17 warts rt upper mucosal lip (previously biopsied and s/p efudex and LN2; bx left upper back returned nevus with architectural disorder not present at margin Concerns: # Left medial malleolus lesion Site was tx'd in 2013 for suspected [...] wound gel - on warfarin for DVT # Nonhealing spot left ear - left helix - x1 mo started as a bump - sometimes tender Personal history of skin cancer: none PMHx: No known PVD ROS: No other skin complaints Allergies and medications were reviewed and verified. Past medical history, social history and family history were reviewed. Nonsmoker No DM PE: ??? No acute distress. ??? Mood clear/affect appropriate. ??? Alert and oriented. ??? Mucous membranes moist, lips free of lesions. ??? Sclera anicteric, conjunctiva clear. Skin exam was conducted to include the: scalp, face, lips, lids/conjunctiva, ears, neck and right and left leg and was normal with the following exceptions: - left medial malleolus with white scar and surrounding hyperpigmentation with central circular shallow ulceration -1+ edema left ankle - left mid helix with shallow ulceration and slightly rolled borders - left instep dilated radial veins A/P: Ramón Maier Jr was seen today for general. 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 Likely component of venous stasis Apply plain Vaseline, cont compression, if cx negative, will start Duoderm, hold mupirocin until cxresulted - CULTURE AEROBIC - Control Gel Formula Dressing (DUODERM CGF EXTRA THIN) dressing; Apply to leg wound every 7 days Neoplasm of uncertain behavior of skin Comments: left helix, shave bx: BCC vs SCC vs CNH reviewed Orders: - PROC BIOPSY OF SKIN LESION - DERMATOPATHOLOGY RTC 2 mo, sooner if worsening symptoms Hai Foster MD [facility] Dermatology Resident PGY-II E SPOOLER documented in this encounter Procedure Notes * Frederick, Yenny B, MD - 11/22/2019 8:03 PM CSTAssociated Order(s): PROC BIOPSY OF SKIN LESION Procedure(s): MN TANGNTL BX SKIN SINGLE LES Pre-Procedure Diagnose(s): Neoplasm of uncertain behavior of skin Risks, benefits and alternatives to shave biopsy were discussed with the patient. Verbal consent was obtained. Encounter Diagnoses Name Primary? Skin ulcer, limited to breakdown of skin Yes ??? Neoplasm of uncertain behavior of skin Location: left helix Skin prep: Alcohol Anesthesia: 1% lidocaine with epinephrine Hemostasis: Aluminum chloride Dressing and wound care discussed. Specimen(s) placed in a patient labeled container and sent to [facility] Dermatopathology. Patient agrees to phone call for results and message if not available. y Procedure performed by Dr. Tj Mcnamara was present for the izaguirre portion of procedures MD Yenny Oviedo MD E SPOOLER documented in this encounter Plan of Treatment Not on file documented as of this encounter Procedures Procedure Name Priority Date/Time Associated Diagnosis Comments MN TANGNTL BX SKIN SINGLE LES Routine 11/22/2019 8:03 PM CABLE SPOOLER Neoplasm of uncertain behavior of skin DERMATOPATHOLOGY Routine 11/16/2019 12:0 0 AM CABLE SPOOLER Neoplasm of uncertain behavior of skin CULTURE AEROBIC Routine 11/16/2019 Skin ulcer, limited to breakdown of skin (HCC) documented in this encounter Results * MN TANGNTL BX SKIN SINGLE LES (11/22/2019 8:03 PM CABLE SPOOLER) Narrative Yenny Mack MD - 11/22/2019 8:03 PM CABLE SPOOLER Yenny Mack MD ? 11/22/2019 ??8:03 PM [...] a patient labeled container and sent to [facility] Dermatopathology. Patient agrees to phone call for results and message if not available. y Procedure performed by Dr. Spencer I was present for the izaguirre portion of procedures MD Yenny Oviedo MD Yenny Mack MD PROCEDURE/MINOR SURG ICAL ORDERABLES * DERMATOPATHOLOGY (11/16/2019 12:00 AM CABLE SPOOLER) Case Report Dermatopathology Report ? Case: [id number] ? Authorizing Provider: ??Yenny Mack MD ?Collected: ? 11/16/2019 12:00 AM ? Ordering Location: ? [facility] ?Received: ?11/17/2019 09:24 AM ? Dermatology ? Pathologist: ? Zenon Armenta MD ? Specimen: ?Skin, left helix ? 0 3:12 PM [facility] DERMATOPATHOLOGY [facility]ORATORY Final Diagnosis Specimen A. SKIN, left helix: HYPERPLASTIC (HYPERTROPHIC) ACTINIC KERATOSIS; EXTENDING TO THE BASE OF THE SPECIMEN (L57.0) ULCER WITH SUPERFICIAL DERMAL NECROSIS (L98.499) (see microscopic description and comment) 0 3:12 PM [facility] DERMATOPATHOLOGY [facility]ORATORY Clinical History BCC vs SCC vs CNH. 0 3:12 PM [facility] DERMATOPATHOLOGY [facility]ORATORY Gross Description Specimen A: Received is one formalin filled container labeled with the patient's name and designated left helix. The specimen consists of a shave biopsy measuring [id number]. Jar 0. 0 3:12 PM [facility] DERMATOPATHOLOGY LABORATORY Microscopic Description Specimen A. SKIN, left helix: There is hyperkeratosis alternating with parakeratosis. There is epidermal hyperplasia with disorderly maturation of keratinocytes with nuclear pleomorphism confined to the lower half of the epidermis. This process extends to the base of the specimen. There is also an ulcer, beneath which there are vascular proliferation, fibroblasts, and an edematous stroma. Additional deeper sections were obtained and reviewed. COMMENT: A squamous cell carcinoma cannot be ruled out. 0 3:12 PM [facility] DERMATOPATHOLOGY [facility]ORATORY Disclaimer An external and internal positive and negative controls are appropriate for the histochemical, immunohistochemical and immunofluorescence stain(s) in this case (if any), except where stated explicitly. The performance characteristics of the stain(s) cited in this report were developed and its performance characteristic determined by the Dermatopathology Laboratory at [facility], directed by Dr. Luis Armenta. These tests need not be, and therefore are not, approved by the [place] Food and Drug Administration. The tests are used for clinical purposes. Billing Codes Specimen Charges Stain Charges 81095 1 0 3:12 PM [facility] DERMATOPATHOLOGY [facility]ORATORY Embedded Images 0 3:12 PM [facility] DERMATOPATHOLOGY [facility]ORATORY Pathology/Cytolog y TISSUE SPECIMEN FROM SKIN / Unknown 11/16/2019 11/17/2019 9:24 AM CABLE SPOOLER Yenny Mack MD LAB - PATHOLOGY/CYTO LOGY ORDERABLES Performing Organization Address [facility]/ZIP Co de Phone Number DERMATOPATHOLOGY LABORATORY [facility] - Department of Dermatology [address] [facility]th [place] [address], [facility] [phone] * CULTURE AEROBIC (11/16/2019) Culture [facility] Comment: ??CULTURE, AEROBIC BACTERIA ?Micro Number: ?[id number] ??Test Status: ? Final ??Specimen Source: ?? WOUND (SITE NOT SPECIFIED) ??Specimen Quality: ??Adequate ??Result: ?No Growth Test Performed at: [facility] ??[id number] FITO ABEL MD Microbiology SPECIMEN FROM WOUND / Unknown 11/16/2019 11/17/2019 1:46 AM CABLE SPOOLER Yenny Mack MD LAB - MICROBIOLOGY O RDERABLES Performing Organization Address [facility] Co de Phone Number [facility] [address] [place] [id number] documented in this encounter Visit Diagnoses Diagnosis Skin ulcer, limited to breakdown of skin (HCC)- Primary Neoplasm of uncertain behavior of skin documented in this encounter Care Teams Cloth Laminating Supervisor Relationship Specialty Start Date End Date Biju Ang DO [address] [facility] [address] [address] PCP - General 06/17/13 documented as of this encounter
--- OUTSIDE RECORDS SUMMARY | 2024-11-07 09:24 | XMS_ITS | Referral Summary ---
Author Organization [facility] Address [address] [facility] [place] [address] Care Team Providers Care Mobile Marketing Manager Name Role Phone Biju Ang DO Primary Care Provider [phone] Source Comments [facility],non-owned Affiliates and Associated Physician Practices is amultiple site organization consisting of ambulatory clinics and hospital sitesin [place], [place], [place] and [place]. This disclosure is being madepursuant to the Care Everywhere program and may not contain all information available regarding this patient. Last updated 18.[facility] Allergies No known active allergies Medications * [...] Orientation Not on file Plan of Treatment Not on file Care Teams Mobile Marketing Manager Relationship Specialty Start Date End Date Biju Ang DO [address] [facility] [address] [place] [address] PCP - General 06/17/13
--- OUTSIDE RECORDS SUMMARY | 2024-11-07 09:24 | XMS_ITS | Encounter Summary ---
Author Organization [facility] Address [address] [facility] [place] [address] Care Team Providers Care Child Care Team Lead Name Role Phone Biju Ang DO Primary Care Provider [phone] Encounter Details Date Type Department Care Team (Latest Contact Info) Description 02/03/2024 Travel Social History Tobacco Use Types Packs/Day [...] on filedocumented in this encounter Care Teams Child Care Team Lead Relationship Specialty Start Date End Date Biju Ang DO [address] [facility] [address] [place] [address] PCP - General 06/17/13 documented as of this encounter
--- OUTSIDE RECORDS SUMMARY | 2024-11-07 09:24 | XMS_ITS | Encounter Summary ---
Author Organization [facility] Address [address] [place] [place] [address] Care Team Providers Care Coin Box Inspector Name Role Phone Biju Ang DO Primary Care Provider [phone] Encounter Details Date Type Department Care Team (Latest Contact Info) Description 02/17/2024 Travel Social History Tobacco Use Types Packs/Day [...] on filedocumented in this encounter Care Teams Coin Box Inspector Relationship Specialty Start Date End Date Biju Ang DO [address] [facility] [address] [place] [address] PCP - General 06/17/13 documented as of this encounter
--- OUTSIDE RECORDS SUMMARY | 2024-11-07 09:25 | XMS_ITS | Clinical Summary ---
Author Organization [facility] Address [address] [place] [address]. [place] [address] [place] [address] Care Team Providers Care 3 Year Olds Preschool Teacher Name Role Phone Biju Ang MD Primary Care Provider [phone] Allergies No known active allergies Medications warfarin (COUMADIN) 6 MG tablet Take 6.5 mg by mouth daily with supper. Active metoprolol tartrate (LOPRESSOR) 25 MG tablet Take by mouth nightly. Active Multiple Vitamin (MULTIVITAMIN ADULT OR) Take 1 tablet by mouth daily. Active Active Problems Problem Noted Date Diagnosed Date Renal mass 05/02/2023 Family History Medical History Relation Comments Cancer Father Alcohol Abuse Mother Liver Disease Mother Relation Status Comments Father (Age 62) Mother (Age 52) Social History Tobacco Use Types Packs/Day Years Used Date Smoking Tobacco: Never Smokeless Tobacco: Never Tobacco Cessation:Counseling Given: Not Answered Alcohol Use Standard Drinks/Week Comments Not Currently 0 (1 standard drink = 0.6 oz pur e alcohol) Sex and Gender Information Value Date Recorded Sex Assigned at Not on file Legal Sex Male 4:39 PM CDT Gender Identity Not on file Sexual Orientation Not on file Last Filed Vital Signs Vital Sign Reading Time Taken Comments Blood Pressure 147/82 05/04/2023 8:03 AM CDT Pulse 75 05/04/2023 8:03 AM CDT Temperature 36.9 ??C (98.4 ??F) 05/04/2023 8:03 AM CD T Respiratory Rate 20 05/04/2023 8:03 AM CDT Oxygen Saturation 94% 05/04/2023 8:03 AM CDT Inhaled Oxygen Concentration - - Weight 103.5 kg (228 lb 2.8 oz) 023 10:18 AM CDT Height 182.9 cm (6') 05/04/2023 3:00 AM CDT Body Mass Index 30.95 05/02/2023 10:18 AM CDT Plan of Treatment Health Maintenance Due Date Last Done Comments Colorectal Cancer Screening Colonoscopy (10 Years) 1955 Hepatitis C 1974 DTaP, Tdap and Td Vaccines ( 1 - Tdap) 1975 Zoster Vaccines (1 of 2) 2006 RSV Immunization or 60+ Years (1 - 1-dose 60+ series) 2016 Annual Medicare Wellness Visit 2021 Pneumococcal Vaccine: 65+ Ye ars (1 of 1 - PCV) 2021 COVID-19 Vaccine (1 - 2023-2 5 season) 2024 Influenza Adult (#1) 2024 Meningococcal Vaccine Aged Out No sandhya anahi eligible based on patient's age to complete this topic RSV Immunizations Under 20 Months Aged Out No longer eligible based on patient's age to complete this topic Goals Goal Patient Goal Type Associated Problems Recent Progress Patient-Stated? Author Family - family caregiver with be involved in care transitions and discharge planning Lifestyle No Amairani Lopez, HELP DESK REPink grinder [facility] Advance Directives * Full Code (Latest Code Status on File) Date Activated Date Inactivated Comments 05/02/2023 6:17 PM 05/04/2023 4:17 PM Care Teams 3 Year Olds Preschool Teacher Relationship Specialty Start Date End Date Biju Ang MD [address] [place] [address] [facility] [address] [place] [address] PCP - General INTERNAL MEDICINE 04/24/23
--- OUTSIDE RECORDS SUMMARY | 2024-11-07 09:25 | XMS_ITS | Encounter Summary ---
Author Organization [facility] Address [address] [place] [address]. [place], [place] [address] [place] [address] Care Team Providers Care Baker Biscuit Name Role Phone Biju Ang MD Primary Care Provider [phone] Encounter Details Date Type Department Care Team (Latest Contact Info) Description 05/02/2023 Travel Social History Tobacco Use Types Packs/Day Years Used Date Smoking Tobacco: Never Smokeless Tobacco: Never Alcohol Use Standard Drinks/Week Comments Not Currently 0 (1 standard drink = 0.6 oz pur e alcohol) Sex and Gender Information Value Date Recorded Sex Assigned at Not on file Legal Sex Male 4:39 PM CDT Gender Identity Not on file Sexual Orientation Not on file COVID-19 Exposure Response Date Recorded In the last 10 days, have yo u been in contact with someone who was confirmed or suspected to have Coronavirus/COVID-19? No / Unsure 05/02/2023 9:41 AM CDT documented as of this encounter Plan of Treatment Not on file documented as of this encounter Visit Diagnoses Not on filedocumented in this encounter Care Teams Baker Biscuit Relationship Specialty Start Date End Date Biju Ang MD [address] [place] [address] [place] [address] PCP - General INTERNAL MEDICINE 04/24/23 documented as of this encounter
--- OUTSIDE RECORDS SUMMARY | 2024-11-07 09:25 | XMS_ITS | Encounter Summary ---
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 gonadal vein was located. The gonadal vein was dissected up to its junction with the renal vein. The renal hilum was then dissected. The renal artery and renal vein were dissected. The fat over the ki dney was then opened. There was fat that was adherent to the kidney. I carefully dissected throughthe stent and found the renal mass. I dissected around the renal mass fully. I then used the ultrasound to tahmina margins around the renal mass. Clamps were then placed on the kidney after mannitol wasgiven. The mass was then sharply extracted. It was placed in a retrieval sac. The base of the mass was sewn with a V-Loc stitch. The renal defect was then closed with 0 Vicryl stitches using a sliding clip technique. After the stitches were placed the clamps were removed. Some bleeding was noted. Additional stitches were placed along with Surgicel and Floseal. The bleeding stopped. We inspected for further bleeding with the pneumoperitoneum turned down to 5 mmHg. No bleeding was noted. The specimen was then extracted through the widened procurement assistant trocar site. The site was then closed with 0 Vicryl stitches and 0 Vicryl using a Conner Washburn device. The abdomen and kidney were reexamined. No bleeding were noted. The abdomen was desufflated and all trocars were removed. The incisions wereirrigated. The incisions were then closed with 3-0 Vicryl followed by 4 Monocryl followed by Dermabond. The patient tolerated the procedure Condition on Discharge from the operating room was stable ARI TRIPLETT MD Date: 05/02/2023 Time: 3:18 PM * OR PreOp - Ramya Potts CNP - 04/24/2023 9:29 AM CDT Chart reviewed. Per phone interview, patient denies any SOB/CP with 2 FOS or recent changes in activity tolerance in past 6 months. Rides bike 10 miles/day. Per phone interview, patient denies havinga dog daycare provider or previous cardiac testing. Pt instructed by PCP to hold warfarin 5-7 days prior tosurgery. * OR PreOp - Gina Ceja RN - 04/24/2023 9:02 AM CDT Per Sign. Other Stacy Patient can climb 2 flights of stairs without chest pain or extreme sob. Exercise tolerance the same as it was 6 months ago. Rides bikes- 10 miles per day Denies recent heart testing pcp-[facility] Cardio-none Will get labs done this week or next Saturday They were told by pcp to hold warfarin 5-7 days prior to surgery documented in this encounter Plan of Treatment Not on file documented as of this encounter Goals Goal Patient Goal Type Associated Problems Recent Progress Patient-Stated? Author Family - family caregiver with be involved in care transitions and discharge planning Lifestyle No Amairani Lopez, [employer] documented as of this encounter Procedures Procedure Name Priority Date/Time Associated Diagnosis Comments PROTHROMBIN TIME, VENOUS Routine 05/04/2023 5:00 AM CDT BASIC METABOLIC PANEL Routine 05/04/2023 5:00 AM CDT CBC W/DIFF AUTOMATED Routine 05/04/2023 5:00 AM CDT CBC W/DIFF AUTOMATED STAT 05/03/2023 7:40 AM CDT BASIC METABOLIC PANEL Routine 05/03/2023 6:30 AM CDT HEMOGLOBIN AND HEMATOCRIT Routine 05/02/2023 4:00 PM CDT BASIC METABOLIC PANEL Routine 05/02/2023 4:00 PM CDT ROBOTIC ASSISTED XI NEPHRECTOMY PARTIAL 05/02/2023 11:12 AM CDT RENAL MASS Case Notes SCHED WITH VIRGILIO ON 03/13/23 [facility] PHONE ASSESS Special Needs [facility] # [id number] PARTIAL THROMBOPLASTIN TIME,PTT STAT 05/02/2023 10:32 AM CDT Renal mass Preop examination Anticoagulant long-term use PROTHROMBIN TIME, VENOUS STAT 05/02/2023 10:32 AM CDT Renal mass Preop examination Anticoagulant long-term use TYPE & SCREEN STAT 05/02/2023 10:27 AM CDT PATHOLOGY Routine 05/02/2023 12:00 AM CDT documented in this encounter Results * (ABNORMAL) PROTIME/INR, VENOUS (05/04/2023 5:00 AM CDT) PROTIME 13.2(H) 10.2 - 12.9 SEC 05/04/2023 5:23 AM CDT [facility] INR 1.1 05/04/2023 5:23 AM CDT [facility] Comment: Recommended INR Therapeutic Goals: ??2.0-3.0 Routine Therapy ??2.5-3.5 Mechanical Prosthetic Valves (High Risk) 05/04/2023 5:00 AM CDT Ari Triplett MD LABORATORY Final Result [facility] [address] [place] [address], * (ABNORMAL) BASIC METABOLIC PANEL (05/04/2023 5:00 AM CDT) GLUCOSE 119(H) 70 - 99 MG/DL 05/04/2023 5:32 AM CDT [facility] BUN 25(H) 7 - 18 MG/DL 05/04/2023 5:32 AM CDT [facility] CREATININE S/P/B 1.52(H) 0.7 - 1.3 MG/DL 05/04/2023 5:32 AM CDT [facility] SODIUM S/P/B 136 136 - 145 MMOL/L 05/04/2023 5:32 AM CDT [facility] POTASSIUM S/P/B 4.1 3.5 - 5.1 MMOL/L 05/04/2023 5:32 AM CDT [facility] CHLORIDE S/P/B 106 100 - 108 MMOL/L 05/04/2023 5:32 AM CDT [facility] CO2 26.0 21 - 32 MMOL/L 05/04/2023 5:32 AM CDT [facility] CALCIUM S/P/B 8.8 8.5 - 10.1 MG/DL 05/04/2023 5:32 AM CDT [facility] ANION GAP 4.0(L) 5 - 15 MMOL/L 05/04/2023 5:32 AM CDT [facility] BUN CREATININE RATIO 16.4 6 - 26 05/04/2023 5:32 AM CDT [facility] GFR ESTIMATE 50(L) >90 ML/MIN/1.7 3 M2 05/04/2023 5:32 AM CDT [facility] Comment: NOTE: eGFR is not calculated for patients <18 years of age. This is an estimated GFR calculation using the new CKD EPI creatinine equation without race and so does not require a correction factor for race. This estimated GFR should not be used for calculating drug doses. 05/04/2023 5:00 AM CDT us Ari Triplett MD LABORATORY Final Result [facility] [address] [place] [address], * (ABNORMAL) CBC W/DIFF AUTOMATED (05/04/2023 5:00 AM CDT) WBC 9.6 4.5 - 11.0 x10'3/uL 05/04/2023 5:15 AM CDT [facility] RBC 4.34(L) 4.70 - 6.10 x10'6/uL 05/04/2023 5:15 AM CDT [facility] HGB 13.4(L) 14.0 - 18.0 G/DL 05/04/2023 5:15 AM CDT [facility] HCT 39.6(L) 43.0 - 54.0 % 05/04/2023 5:15 AM CDT [facility] MCV 91.2 80.0 - 94.0 FL 05/04/2023 5:15 AM CDT [facility] MCH 30.9 27.0 - 31.0 PG 05/04/2023 5:15 AM CDT [facility] MCHC 33.8 32.0 - 36.0 G/DL 05/04/2023 5:15 AM CDT [facility] RDW 13.5 11.5 - 14.5 % 05/04/2023 5:15 AM CDT [facility] PLT 154 130 - 400 x10'3/uL 05/04/2023 5:15 AM CDT [facility] MPV 10.0 9.3 - 12.2 FL 05/04/2023 5:15 AM CDT [facility] DIFFERENTIAL TYPE AUTOMATED DIFFERENTIAL 05/04/2023 5:15 AM CDT [facility] NEUTROPHILS % 69.0 % 05/04/2023 5:15 AM CDT [facility] LYMPHOCYTES % 17.8 % 05/04/2023 5:15 AM CDT [facility] MONOCYTES % 12.3 % 05/04/2023 5:15 AM CDT [facility] EOSINOPHILS 0.2 % 05/04/2023 5:15 AM CDT [facility] BASOPHILS 0.3 % 05/04/2023 5:15 AM CDT [facility] IMMATURE GRANS % 0.4 % 05/04/20 5:15 AM CDT [facility] ABS. NEUTROPHILS TOTAL 6.59 1.80 - 7.70 x10'3/uL 05/04/2023 5:15 AM CDT [facility] ABS. LYMPHOCYTES 1.70 1.00 - 4.80 x10'3/uL 05/04/2023 5:15 AM CDT [facility] ABS. MONOCYTES 1.18(H) 0.30 - 0.82 x10'3/uL 05/04/2023 5:15 AM CDT [facility] ABS. EOSINOPHILS 0.02(L) 0.04 - 0.54 x10'3/uL 05/04/2023 5:15 AM CDT [facility] ABS. BASOPHILS 0.03 0.01 - 0.08 x10'3/uL 05/04/2023 5:15 AM CDT [facility] ABS. IMMATURE GRANULOCYTES 0.04 0.00 - 0.49 x10'3/uL 05/04/2023 5:15 AM CDT [facility] 05/04/2023 5:00 AM CDT Ari Triplett MD LABORATORY Final Result [facility] [address] [place] [address], * (ABNORMAL) CBC W/DIFF AUTOMATED (05/03/2023 7:40 AM CDT) WBC 9.2 4.5 - 11.0 x10'3/uL 05/03/2023 7:56 AM CDT [facility] RBC 4.47(L) 4.70 - 6.10 x10'6/uL 05/03/2023 7:56 AM CDT [facility] HGB 13.8(L) 14.0 - 18.0 G/DL 05/03/2023 7:56 AM CDT [facility] HCT 40.6(L) 43.0 - 54.0 % 05/03/2023 7:56 AM CDT [facility] MCV 90.8 80.0 - 94.0 FL 05/03/2023 7:56 AM CDT [facility] MCH 30.9 27.0 - 31.0 PG 05/03/2023 7:56 AM CDT [facility] MCHC 34.0 32.0 - 36.0 G/DL 05/03/2023 7:56 AM CDT [facility] RDW 13.4 11.5 - 14.5 % 05/03/2023 7:56 AM CDT [facility] PLT 171 130 - 400 x10'3/uL 05/03/2023 7:56 AM CDT [facility] MPV 9.8 9.3 - 12.2 FL 05/03/2023 7:56 AM CDT [facility] DIFFERENTIAL TYPE AUTOMATED DIFFERENTIAL 05/03/2023 7:56 AM CDT [facility] NEUTROPHILS % 72.7 % 05/03/2023 7:56 AM CDT [facility] LYMPHOCYTES % 14.6 % 05/03/2023 7:56 AM CDT [facility] MONOCYTES % 12.2 % 05/03/2023 7:56 AM CDT [facility] EOSINOPHILS 0.0 % 05/03/2023 7:56 AM CDT [facility] BASOPHILS 0.1 % 05/03/2023 7:56 AM CDT [facility] IMMATURE GRANS % 0.4 % 05/03/20 7:56 AM CDT [facility] ABS. NEUTROPHILS TOTAL 6.64 1.80 - 7.70 x10'3/uL 05/03/2023 7:56 AM CDT [facility] ABS. LYMPHOCYTES 1.34 1.00 - 4.80 x10'3/uL 05/03/2023 7:56 AM CDT [facility] ABS. MONOCYTES 1.12(H) 0.30 - 0.82 x10'3/uL 05/03/2023 7:56 AM CDT [facility] ABS. EOSINOPHILS 0.00(L) 0.04 - 0.54 x10'3/uL 05/03/2023 7:56 AM CDT [facility] ABS. BASOPHILS 0.01 0.01 - 0.08 x10'3/uL 05/03/2023 7:56 AM CDT [facility] ABS. IMMATURE GRANULOCYTES 0.04 0.00 - 0.49 x10'3/uL 05/03/2023 7:56 AM CDT [facility] 05/03/2023 7:40 AM CDT Ari Triplett MD LABORATORY Final Result [facility] [address] [place] [address], [place] [phone] * (ABNORMAL) BASIC METABOLIC PANEL (05/03/2023 6:30 AM CDT) GLUCOSE 106(H) 70 - 99 MG/DL 05/03/2023 11:55 AM CDT [facility] BUN 7 7 - 18 MG/DL 05/03/2023 11:55 AM CDT [facility] CREATININE S/P/B 0.83 0.7 - 1.3 MG/DL 05/03/2023 11:55 AM CDT [facility] SODIUM S/P/B 137 136 - 145 MMOL/L 05/03/2023 11:55 AM CDT [facility] POTASSIUM S/P/B 3.7 3.5 - 5.1 MMOL/L 05/03/2023 11:55 AM CDT [facility] CHLORIDE S/P/B 107 100 - 108 MMOL/L 05/03/2023 11:55 AM CDT [facility] CO2 24.2 21 - 32 MMOL/L 05/03/2023 11:55 AM CDT [facility] CALCIUM S/P/B 8.4(L) 8.5 - 10.1 MG/DL 05/03/2023 11:55 AM CDT [facility] ANION GAP 5.8 5 - 15 MMOL/L 05/03/2023 11:55 AM CDT [facility] BUN CREATININE RATIO 8.5 6 - 26 05/03/2023 11:55 AM CDT [facility] GFR ESTIMATE >90 >90 ML/MIN/1.7 3 M2 05/03/2023 11:55 AM CDT [facility] Comment: NOTE: eGFR is not calculated for patients <18 years of age. This is an estimated GFR calculation using the new CKD EPI creatinine equation without race and so does not require a correction factor for race. This estimated GFR should not be used for calculating drug doses. 05/03/2023 6:30 AM CDT Ari Triplett MD LABORATORY Final Result Performing Organization Address City/[facility]/ZIP Co de Phone Number [facility] [address] [place] [address], [place] [phone] * HEMOGLOBIN AND HEMATOCRIT (05/02/2023 4:00 PM CDT) [facility] Signature HGB 14.6 14.0 - 18.0 G/DL 05/02/2023 4:18 PM CDT [facility] HCT 43.6 43.0 - 54.0 % 05/02/2023 4:18 PM CDT [facility] 05/02/2023 4:00 PM CDT Ari Triplett MD LABORATORY Final Result [facility] [address] [place] [address], [place] [phone] * (ABNORMAL) BASIC METABOLIC PANEL (05/02/2023 4:00 PM CDT) [facility] GLUCOSE 172(H) 70 - 99 MG/DL 05/02/2023 4:37 PM T [facility] BUN 17 7 - 18 MG/DL 05/02/2023 4:37 PM T [facility] CREATININE S/P/B 1.23 0.7 - 1.3 MG/DL 05/02/2023 4:37 PM T [facility] SODIUM S/P/B 136 136 - 145 MMOL/L 05/02/2023 4:37 PM T [facility] POTASSIUM S/P/B 3.7 3.5 - 5.1 MMOL/L 05/02/2023 4:37 PM T [facility] CHLORIDE S/P/B 108 100 - 108 MMOL/L 05/02/2023 4:37 PM T [facility] CO2 25.2 21 - 32 MMOL/L 05/02/2023 4:37 PM T [facility] CALCIUM S/P/B 8.6 8.5 - 10.1 MG/DL 05/02/2023 4:37 PM T [facility] ANION GAP 2.8(L) 5 - 15 MMOL/L 05/02/2023 4:37 PM T [facility] BUN CREATININE RATIO 13.8 6 - 26 05/02/2023 4:37 PM T [facility] GFR ESTIMATE 65(L) >90 ML/MIN/1.7 3 M2 05/02/2023 4:37 PM T [facility] Comment: NOTE: eGFR is not calculated for patients <18 years of age. This is an estimated GFR calculation using the new CKD EPI creatinine equation without race and so does not require a correction factor for race. This estimated GFR should not be used for calculating drug doses. 05/02/2023 4:00 PM CDT Ari Triplett MD LABORATORY Final Result [facility] [address] [place] [address], [place] [phone] * (ABNORMAL) PROTIME/INR, VENOUS (05/02/2023 10:32 AM CDT) PROTIME 13.0(H) 10.2 - 12.9 SEC 05/02/2023 11:06 AM CDT [facility] INR 1.1 05/02/2023 11:06 AM CDT [facility] Comment: Recommended INR Therapeutic Goals: ??2.0-3.0 Routine Therapy ??2.5-3.5 Mechanical Prosthetic Valves (High Risk) 05/02/2023 10:3 2 AM CDT Ariconstantino Triplett MD LABORATORY Final Result Performing Organization Address City/[facility]/ZIP Co de Phone Number [facility] [address] [place] [address], [place] [phone] * PTT, PARTIAL THROMBOPLASTIN TIME (05/02/2023 10:32 AM CDT) PTT 30.2 25.1 - 36.5 SEC 05/02/2023 11:06 AM CDT [facility] 05/02/2023 10:3 2 AM CDT Ari Triplett MD LABORATORY Final Result [facility] [address] [place] [address], [place] [phone] * TYPE & SCREEN (05/02/2023 10:27 AM CDT) Pathologist [facility] ABO/RH A POSITIVE 05/02/2023 11:46 AM CDT [facility] ANTIBODY SCREEN NEGATIVE 05/02/2023 11:46 AM CDT [facility] SAMPLE EXPIRATION 05/05/2023,2 359 05/02/2023 11:46 AM CDT [facility] 05/02/2023 10:2 7 AM CDT us Ari Triplett MD BLOOD BANK TEST ORDERABLES Korina addison Result [facility] [address] [facility] [place] [address], * Pathology (05/02/2023 12:00 AM CDT) Pathologist [facility] COPATH REPORT ?[facility] ? [address] ? [place], [place] ??[address] ? [id number] ? Department of Pathology ? Pathology Report ? Addendum ? SURGICAL FINAL REPORT Patient Name: RAMÓN ORTA JR. ? : 1955 (Age: 67) ?Location: [id number] Gender: M ?Collected Date: 05/02/2023 [facility] Rec #: [id number] ?Date Received: 05/02/2023 Date Reported: / Provider: ARI TRIPLETT MD Specimen(s) A: Kidney, Left Partial Nephrectomy B: perihilar C: Fat over tumor Final Pathologic Diagnosis A. ??LEFT KIDNEY MASS, PARTIAL NEPHRECTOMY: ? PAPILLARY RENAL CELL CARCINOMA, 3.5 CM, ISUP GRADE 2 ? CARCINOMA FOCALLY INVOLVES THE PARENCHYMAL MARGIN ? AJCC STAGE: pT1a NX B. ??PIHILAR TISSUE, EXCISION: ? BENIGN NERVE TISSUE ? NO LYMPHOID TISSUE PRESENT ? C. ??FAT OVER TUMOR, EXCISION: ? BENIGN APIPOSE TISSUE Synoptic Report for Resection Specimens from Patients with Invasive Carcinoma from Renal Tubular Origin: Procedure ?- ? Partial nephrectomy Specimen Laterality ? - ? Left Tumor Focality ?- ? Solitary focus Tumor Site ?- ? Upper to mid pole Tumor Size ?- ? 3.5 cm Histologic Type ?- ? Papillary renal cell carcinoma, type 1 Histologic Grade ?- ? ISUP Tumor Extent ?- ? Tumor limited to kidney Sarcomatoid Features ? - ? Not identified Rhabdoid Features ? - ? Not identified Tumor Necrosis ?- ? Not identified Lymphovascular Invasion ?- ? Not identified Margin Status ?- ? Carcinoma focally involves the inked parenchymal margin Regional Lymph nodes ?- ? No lymph nodes found or submitted Pathologic Stage Classification ?- ? pT1a NX Additional Findings in Nonneoplastic Kidney ? - ? No significant findings Electronically Signed Out ? CIERRA MUÑIZ MD Pathologist ATB:atb Procedures/Addenda Addendum ? Date Ordered: ? 05/10/2023 ? Status: Signed Out ?Date Complete: ? 05/10/2023 ? By: CIERRA HERRERA ? Date Reported: ? 05/10/2023 ? Addendum Diagnosis The tumor is positive for AMACR with focal staining for RCC. ??CAIX is essentially negative. ??The control slides stain appropriately. ??The above diagnosis remains the same. ?? Electronically Signed Out By CIERRA MUÑIZ MD Microscopic Description: [employer] sections show a well circumscribed tumor comprised of complex branching papillae. ??The tumor cells show high nuclear to cytoplasmic ratio and pale pink cytoplasm. ??Collections of foamy macrophages are noted. ??The tumor is positive for CK7. ??PAX8 shows moderate nuclear staining. ??CD10 shows focal staining. ??AMACR and CA9 are pending and will be reported in an addendum. ?? This case has undergone intradepartmental review. ?? The Immunohistochemical (IHC) stain controls perform as expected. These tests were developed and the performance characteristics determined by: [place], [place]; [place], [place]; [employer] [place], [place]: and/or [employer] [place], [place]. They have not been cleared or approved by the [place] Food and Drug Administration (FDA). The FDA has determined that such clearance or approval is not necessary. These tests are used for clinical purposes. Prognostic and predictive testing should be interpreted in the context of additional and/or histopathological findings. Clinical History Renal mass Gross Description The specimen is received in three formalin-filled containers all labeled with the patient's name (Ramón Orta) and date of . A. ??The first specimen is received in one formalin-filled container additionally labeled as left partial nephrectomy. ??The specimen consists of a 131 gram partial nephrectomy specimen which measures 8.0 x 5.0 x 4.5 cm. ??The resected edge shows a focal abnormality/possible involvement by tumor and is inked in black. ??The overlying surface of the specimen is inked in blue. ??The specimen is partially sectioned and allowed to fix in formalin overnight. ?? After overnight formalin fixation, the specimen is serially sectioned to show a 3.5 x 3.0 x 3.0 cm yellow to dark brown heterogenous, solid mass which appears to focally involve the inked parenchymal margin and shows a thin rim of capsule surrounding the exophytic surface. ??No additional nodules or lesions are seen. Sections are submitted as follows: A1-2 ? - ? uninvolved kidney A3-5 ? - ? mass abutting the inked parenchymal margin A6-8 ? - ? mass in relation to the overlying capsule/inked surface A9 ? - ? tumor and adjacent kidney A10 ? - ? center of tumor B. ??The second specimen is received additionally labeled as perihilar. ??The specimen consists of a single fragment of fatty tissue measuring 1.0 x 0.5 x 0.2 cm. ??This shows a 0.6 cm lymph node. ??The specimen is bisected and entirely submitted in cassette B. C. ??The third specimen is received additionally labeled as fat over tumor. The specimen consists of a segment of fat which measures 2.5 x 2.5 x 0.7 cm. The fat is not oriented. ??One side is inked in black. ?? The opposing surface is inked in blue. ??The specimen is serially sectioned and entirely submitted in cassettes C1-C3. ?? ATB:atb Billing Fee Code(s): 36862, 66846, 29530(2), 58344(3) [facility] TISSUE (OTHER (type in comments)) 05/02/2023 12:27 PM CDT us Ari Triplett MD PATHOLOGY/CYTOLOGY ORDERABLES E dited Result - Final [facility] [address] [place] [address], [place] [phone] documented in this encounter Visit Diagnoses Diagnosis Renal mass- Primary Unspecified disorder of kidney and ureter Renal mass Unspecified disorder of kidney and ureter Preop examination Preoperative examination, unspecified Anticoagulant long-term use Encounter for long-term (current) use of anticoagulants documented in this encounter Admitting Diagnoses Diagnosis Renal mass Unspecified disorder of kidney and ureter documented in this encounter Administered Medications Inactive Administered Medications - up to 3 most recent administrations Medication Order MAR Action Action Date Dose Rate Site acetaminophen (TYLENOL) tablet 1,000 mg 1,000 mg, Oral, call center assistant to O.R., 1 dose, First dose on Fozia 05/02/23 at 1015, Maximum dose of acetaminophen is 4000 mg from all sources in 24 hours., Pre-OpIndications:Renal mass Given 05/02/2023 10:51 AM CDT 1,000 mg acetaminophen (TYLENOL) tablet 1,000 mg 1,000 mg, Oral, Every 6 hours, First dose on Fozia 05/02/23 at 1700, Until Discontinued, Maximum dose of acetaminophen is 4000 mg from all sources in 24 hours., Post-Op Given 05/04/2023 9:22 AM CDT 1,000 mg Given 05/03/2023 12:28 PM CDT 1,000 mg Given 05/03/2023 7:59 AM CDT 1,000 mg docusate sodium (COLACE) capsule 100 mg 100 mg, Oral, 2 times daily, First dose on Fozia 05/02/23 at 2100, Until Discontinued, Post-Op Given 05/04/2023 9:00 AM CDT 100 mg Given 05/03/2023 8:04 PM CDT 100 mg Given 05/03/2023 7:59 AM CDT 100 mg famotidine (PF) (PEPCID) injection 20 mg 20 mg, Intravenous, Once, 1 dose, On Fozia 05/02/23 at 1115, On admission IV Push over 2 minutes, Pre-Op Given 05/02/2023 10:58 AM CDT 20 mg gabapentin (NEURONTIN) capsule 300 mg 300 mg, Oral, call center assistant to O.R., 1 dose, First dose on Fozia 05/02/23 at 1015, Pre-OpIndications:Renal mass Given 05/02/2023 10:51 AM CDT 300 mg heparin (porcine) injection 5,000 Units 5,000 Units, Subcutaneous, Once, 1 dose, On Fozia 05/02/23 at 1015, preop, Pre-OpIndications:Renal mass Given 05/02/2023 10:53 AM CDT 5,000 Units Right Lower Abdomen heparin (porcine) injection 5,000 Units 5,000 Units, Subcutaneous, Every 12 hours scheduled (2 times per day), First dose on Fozia 05/02/23 at 2100, Until Discontinued, Post-Op Given 05/03/2023 7:59 AM CDT 5,000 Units Right Lower Abdomen Given 05/02/2023 9:22 PM CDT 5,000 Units R ight Lower Abdomen HYDROmorphone (DILAUDID) injection 0.2 mg 0.2 mg, Intravenous, Every 10 min PRN, Severe pain (Scale 8 - 10), 10 doses, Starting on Fozia 05/02/23 at 1432, Until Fozia 05/02/23 at 1816, Maximum cumulative dose 2 mg. Do not administer if patient is overly sedated, SpO2 less than 90%, or Respiratory Rate less than 12. If more than one IV analgesic is ordered per pain level, use in this order: fentaNYL, morphine, HYDROmorphone. If desired pain control is not reached, move to next ordered medication at next dosing interval., PACU Given 05/02/2023 3:40 PM CDT 0. 2 mg HYDROmorphone (DILAUDID) injection 0.2 mg 0.2 mg, Intravenous, Every 3 hours PRN, Severe pain (Scale 8 - 10), Starting on Fozia 05/02/23 at 1629, Until 05/04/23 at 1612, Administer slowly over at least 2-3 minutes., Post-Op Given 05/04/2023 4:53 AM CDT 0.2 mg Given 05/03/2023 9:54 PM CDT 0.2 mg Given 05/03/2023 7:59 AM CDT 0.2 mg ketorolac (TORADOL) injection 15 mg 15 mg, Intravenous, Every 6 hours, 20 doses, First dose on Sat05/03/23 at 1330, Last dose on Sat05/08/23 at 0730, For IV administration, give over 15 seconds. Given 05/04/2023 9:00 AM CDT 15 mg Given 05/04/2023 1:55 AM CDT 15 mg Given 05/03/2023 8:00 PM CDT 15 mg lactated ringers infusion at 75 mL/hr, Intravenous, Continuous, Starting on Fozia 05/02/23 at 1630, Until Sat05/03/23 at 0715, Post-Op New Bag 05/03/2023 5:49 AM CDT 75 mL/hr New Bag 05/02/2023 5:50 PM CDT 75 mL/hr metoprolol tartrate (LOPRESSOR) tablet 25 mg 25 mg, Oral, Nightly, First dose on Sat05/02/23 at 2100, Until Discontinued Given 05/03/2023 8:04 PM CDT 25 mg Given 05/02/2023 9:22 PM CDT 25 mg oxyCODONE immediate release (ROXICODONE) tablet 5 mg 5 mg, Oral, Every 4 hours PRN, Severe pain (Scale 8 - 10), Starting on Fozia 05/02/23 at 1630, Until 05/04/23 at 1612 Given 05/03/2023 4:47 PM CDT 5 mg Given 05/03/2023 12:28 PM CDT 5 mg Given 05/03/2023 5:46 AM CDT 5 mg warfarin (COUMADIN) tablet 6.5 mg 6.5 mg, Oral, Daily (warfarin), First dose on 05/03/23 at 1700, Until Discontinued, HAZARDOUS MEDICATION: wear single chemotherapy approved gloves. Do not open or split. If crushing, use approved closed-system crushing device for hazardous medications. Given 05/03/2023 4:47 PM CDT 6.5 mg documented in this encounter Active and Recently Administered Medications Times are shown in CDT. Scheduled Medication Order 05/02/2023 05/03/2023 05/04/2023 acetaminophen (TYLENOL) tablet 1,000 mg (COMPLETED) 1,000 mg, Oral, call center assistant to O.R., 1 dose, First dose on Fozia 05/02/23 at 1015, Maximum dose of acetaminophen is 4000 mg from all sources in 24 hours., Pre-Op 1051 (Given - Provider: Kera Raymond RN) acetaminophen (TYLENOL) tablet 1,000 mg 1,000 mg, Oral, Every 6 hours, First dose on Fozia 05/02/23 at 1700, Until Discontinued, Maximum dose of acetaminophen is 4000 mg from all sources in 24 hours., Post-Op 1643 (Given - Provider: Tab Salazar RN) 0110 (Given - Provider: Donna Chan RN)0759 (Given - Provider: Emerald Fernandez, FRANKO)1228 (Given - Provider: Emerald Fernandez RN)1959 (Not Given - Provider: Katharine Shay RN - Reason: Patient/family declined) 0155 (Not Given - Provider: Katharine Shay RN - Reason: Patient/family declined)0922 (Given - Provider: Amna Ignacio RN)1315 (Canceled Entry - Provider: Automatic Discharge Provider - Comment: Automatically canceled at discontinue of medication order) ceFAZolin (ANCEF) 2 g in NS 100 mL IVPB (COMPLETED) 2 g, Intravenous, at 200 mL/hr, call center assistant to O.R., 1 dose, First dose on Fozia 05/02/23 at 1015, Pre-Op 1133 (Given - Provider: Chantal Retana CRNA)1143 (Infusion Stop Time - Provider: Chantal Retana CRNA) docusate sodium (COLACE) capsule 100 mg 100 mg, Oral, 2 times daily, First dose on Fozia 05/02/23 at 2100, Until Discontinued, Post-Op 2121 (Given - Provider: Donna Chan RN) 075 (Given - Provider: Emerald Fernandez RN)2003 (Given - Provider: Katharine Shay, FRANKO) 0900 (Given - Provider: Amna Ignacio RN) famotidine (PF) (PEPCID) injection 20 mg (COMPLETED) 20 mg, Intravenous, Once, 1 dose, On Fozia 05/02/23 at 1115, On admission IV Push over 2 minutes, Pre-Op 1058 (Given - Provider: Kera Raymond RN) gabapentin (NEURONTIN) capsule 300 mg (COMPLETED) 300 mg, Oral, call center assistant to O.R., 1 dose, First dose on Fozia 05/02/23 at 1015, Pre-Op 1051 (Given - Provider: Kera Raymond RN) heparin (porcine) injection 5,000 Units (COMPLETED) 5,000 Units, Subcutaneous, Once, 1 dose, On Fozia 05/02/23 at 1015, preop, Pre-Op 1053 (Given - Provider: Kera Raymond, FRANKO) heparin (porcine) injection 5,000 Units(Linked Group 1) 5,000 Units, Subcutaneous, Every 12 hours scheduled (2 times per day), First dose on Fozia 05/02/23 at 2100, Until Discontinued, Post-Op 2121 (Given - Provider: Donna Chan RN) 075 (Given - Provider: Emerald Fernandez RN)2001 (Not Given - Provider: Katharine Shay RN - Reason: Patient/family declined) 0903 (Not Given - Provider: Amna Ignacio, FRANKO - Reason: Patient/family declined) ketorolac (TORADOL) injection 15 mg (CANCELED) 15 mg, Intravenous, Every 6 hours, 20 doses, First dose on Sat05/03/23 at 1330, Last dose on Sat05/08/23 at 0730, For IV administration, give over 15 seconds. 1409 (Given - Provider: Emerald Fernandez RN)1999 (Given - Provider: Katharine Shay RN) 015 (Given - Provider: Katharine Shay RN)0900 (Given - Provider: Amna Ignacio, FRANKO) metoprolol tartrate (LOPRESSOR) tablet 25 mg 25 mg, Oral, Nightly, First dose on Sat05/02/23 at 2100, Until Discontinued 2121 (Given - Provider: Donna Chan RN) 2003 (Given - Provider: Katharine Shay RN) warfarin (COUMADIN) tablet 6.5 mg 6.5 mg, Oral, Daily (warfarin), First dose on Sat05/03/23 at 1700, Until Discontinued, HAZARDOUS MEDICATION: wear single chemotherapy approved gloves. Do not open or split. If crushing, use approved closed-system crushing device for hazardous medications. 1647 (Given - Provider: Emerald Fernandez RN) Continuous Medication Order 05/02/2023 05/03/2023 05/04/2023 lactated ringers infusion (CANCELED) at 10 mL/hr, Intravenous, Continuous, Starting on Sat05/02/23 at 1115, Until Sat05/03/23 at 0715, Infuse at TKO rate, Pre-Op 1112 (New Bag - Provider: Chantal Retana CRNA)1313 (New Bag - Provider: Chantal Retana CRNA)1525 (Infusion Stop Time - Provider: Chantal Retana CRNA) lactated ringers infusion (CANCELED) at 75 mL/hr, Intravenous, Continuous, Starting on Sat05/02/23 at 1630, Until Sat05/03/23 at 0715, Post-Op 1750 (New Bag - Provider: Tab Salazar RN) 0549 (New Bag - Provider: Donna Chan RN) PRN Medication Order 05/02/2023 05/03/2023 05/04/2023 BUpivacaine (PF) (MARCAINE) 0.25 % injection (CANCELED) As needed, Starting on Fozia 05/02/23 at 1200, Until Fozia 05/02/23 at 1518, Intra-Op 1200 (Given - Provider: Ari Triplett MD - Comment: Mixed 1:1 with 1% Lidocaine (injected 26 total))1425 (Given - Provider: Ari Triplett MD - Comment: Mixed 1:1 with 1% Lidocaine (injected 10 total)) HYDROmorphone (DILAUDID) injection 0.2 mg (CANCELED) 0.2 mg, Intravenous, Every 10 min PRN, Severe pain (Scale 8 - 10), 10 doses, Starting on Fozia 05/02/23 at 1432, Until Fozia 05/02/23 at 1816, Maximum cumulative dose 2 mg. Do not administer if patient is overly sedated, SpO2 less than 90%, or Respiratory Rate less than 12. If more than one IV analgesic is ordered per pain level, use in this order: fentaNYL, morphine, HYDROmorphone. If desired pain control is not reached, move to next ordered medication at next dosing interval., PACU 1540 (Given - Provider: Tab Salazar RN) HYDROmorphone (DILAUDID) injection 0.2 mg 0.2 mg, Intravenous, Every 3 hours PRN, Severe pain (Scale 8 - 10), Starting on Fozia 05/02/23 at 1629, Until 05/04/23 at 1612, Administer slowly over at least 2-3 minutes., Post-Op 1842 (Given - Provider: Emerald Fernandez RN)2217 (Given - Provider: Donna Chan, FRANKO) 0759 (Given - Provider: Emerald Fernandez RN)2154 (Given - Provider: Katharine Shay, FRANKO) 0453 (Given - Provider: Katharine Shay, FRANKO) lidocaine (XYLOCAINE) 1 % injection SOLN (CANCELED) As needed, Starting on Fozia 05/02/23 at 1200, Until Fozia 05/02/23 at 1518, Intra-Op 1200 (Given - Provider: Ari Triplett MD - Comment: Mixed 1:1 with 0.25% Bupivacaine (injected 26ml total))1425 (Given - Provider: Ari Triplett MD - Comment: Mixed 1:1 with 0.25% Bupivacaine (injected 10ml total)) ondansetron (ZOFRAN) injection 4 mg 4 mg, Intravenous, Every 8 hours PRN, Nausea, Vomiting, Starting on Fozia 05/02/23 at 1817, Until 05/04/23 at 1612, Post-Op oxidized cellulose 4x8 (SURGICEL) pad (CANCELED) As needed, Starting on Fozia 05/02/23 at 1250, Until Fozia 05/02/23 at 1518, Intra-Op 1250 (Given - Provider: Ari Triplett MD)1357 (Given - Provider: Ari Triplett MD) oxyCODONE immediate release (ROXICODONE) tablet 5 mg 5 mg, Oral, Every 4 hours PRN, Severe pain (Scale 8 - 10), Starting on Fozia 05/02/23 at 1630, Until 05/04/23 at 1612 1703 (Given - Provider: Tab Salazar RN)2122 (Given - Provider: Donna Chan RN) 0110 (Given - Provider: Donna Chan RN)0546 (Given - Provider: Donna Chan RN)1228 (Given - Provider: Emerald Fernandez RN)1647 (Given - Provider: Emerald Fernandez RN) sodium chloride 0.9 % irrigation (COMPLETED) Continuous PRN, Starting on Fozia 05/02/23 at 1506, Until Fozia 05/02/23 at 1506, Intra-Op 1506 (New Bag - Provider: Ari Triplett MD) Linked Groups Order Group 1: heparin (porcine) injection 5,000 UnitsJump to med 5,000 Units, Subcutaneous, Every 12 hours scheduled (2 times per day), First dose on Fozia 05/02/23 at 2100, Until Discontinued, Post-Op And Place sequential compression device (COMPLETED) Routine, Once, On Fozia 05/02/23 at 1818, For 1 occurrence, Post-Op And Intermittent Pneumatic Compression Device Applied (COMPLETED) And Assess Sequential Compression Device (Assess skin at a minimum of every shift) (CANCELED) Routine, Every shift, First occurrence on Fozia 05/02/23 at 1818, Post-Op And Maintain Sequential Compression Device (COMPLETED) Routine, Daily, First occurrence on Sat05/03/23 at 0600, Post-Op And HIGH RISK FOR VTE (COMPLETED) documented in this encounter Care Teams Wax Blender Relationship Specialty Start Date End Date Frederick Squires MD [address] [place] [address] PCP - General INTERNAL MEDICINE 04/24/23 documented as of this encounter
--- OUTSIDE RECORDS SUMMARY | 2024-11-07 09:25 | XMS_ITS | Encounter Summary ---
Author Organization [facility] Address [address] [place] [address]. [place] [address] [place] [address] Care Team Providers Care Store Custodian Name Role Phone Biju Ang MD Primary Care Provider [phone] Encounter Details Date Type Department Care Team (Late st Contact Info) Description 05/06/2023 Hospital Follow-up Call [facility] Med/Surg [address] [place] [address] Gissell Ruvalcaba RN Social History Tobacco Use Types Packs/Day Years [...] AM CDT documented as of this encounter Functional Status * Are you deaf or do you have serious difficulty hearing Answer Date of Assessment Author Status No 05/04/2023 3:00 AM CDT Shea Ross RN Active * Are you blind or do you have serious difficulty seeing, even when wearing glasses? Answer Date of Assessment Author Status No 05/04/2023 3:00 AM CDT Shea Ross RN Active * Do you have serious [...] as of this encounter Mental Status * Because of a physical, mental, or emotional condition, do you have serious difficulty concentrating, remembering, or making decisions? Answer Entry Date Author Status No 05/04/2023 3:00 AM Shea Marie RN Active documented in this encounter Plan of Treatment Not on file documented as of this encounter Goals Goal Patient Goal Type Associated Problems Recent Progress Patient-Stated? Author Family - family caregiver with be involved in care transitions and discharge planning Lifestyle No Amairani Lopez, TACTICAL AIR CONTROL PARTY documented as of this encounter Visit Diagnoses Not on filedocumented in this encounter Care Teams Store Custodian Relationship Specialty Start Date End Date Biju Ang MD [address] [address] PCP - General INTERNAL MEDICINE 04/24/23 documented as of this encounter
--- OUTSIDE RECORDS SUMMARY | 2024-11-07 09:25 | XMS_ITS | Encounter Summary ---
Author Organization [facility] Address [address] [place] [address]. [place] [address] [place] [address] Care Team Providers Care Impregnator Electrolytic Capacitors Name Role Phone Biju Ang MD Primary Care Provider [phone] Encounter Details Date Type Department Care Team (Late st Contact Info) Description 05/07/2023 Hospital Follow-up Call [facility] Med/Surg 3[address] [place] [address] Gissell Ruvalcaba RN Social History Tobacco Use [...] and discharge planning Lifestyle No Amairani Lopez, POLYSOMNOGRAPHY TECH documented as of this encounter Visit Diagnoses Not on filedocumented in this encounter Care Teams Impregnator Electrolytic Capacitors Relationship Specialty Start Date End Date Biju Ang MD [address] [address] PCP - General INTERNAL MEDICINE 04/24/23 documented as of this encounter
--- OUTSIDE RECORDS SUMMARY | 2024-11-07 09:25 | XMS_ITS | Encounter Summary ---
Author Organization [facility] Address [address] [place] [address]. [place] [address] [place] [address] Care Team Providers Care Iron Launder Operator Name Role Phone Biju Ang MD Primary Care Provider [phone] Encounter Details Date Type Department Care Team (Late st Contact Info) Description 05/06/2023 Hospital Follow-up Call [facility] Med/Surg [address]rd [place] [address] Gissell Ruvalcaba RN Social History Tobacco Use [...] and discharge planning Lifestyle No Amairani Lopez, CLAIMS EXAMINER documented as of this encounter Visit Diagnoses Not on filedocumented in this encounter Care Teams Iron Launder Operator Relationship Specialty Start Date End Date Biju Ang MD [address] [address] PCP - General INTERNAL MEDICINE 04/24/23 documented as of this encounter
--- OUTSIDE RECORDS SUMMARY | 2024-11-07 09:25 | XMS_ITS | Encounter Summary ---
Author Organization [facility] Address [address] [place] [address]. [place] [address] [place] [address] Care Team Providers Care On Air Personality Name Role Phone Biju Ang MD Primary Care Provider [phone] Encounter Details Date Type Department Care Team (Late st Contact Info) Description 05/07/2023 Hospital Follow-up Call [facility] Med/Surg [address]rd [place] [address] Gissell Ruvalcaba RN Social History Tobacco Use [...] and discharge planning Lifestyle No Amairani Lopez, RESERVE OPERATOR documented as of this encounter Visit Diagnoses Not on filedocumented in this encounter Care Teams On Air Personality Relationship Specialty Start Date End Date Biju Ang MD [address] [address] PCP - General INTERNAL MEDICINE 04/24/23 documented as of this encounter
--- OUTSIDE RECORDS SUMMARY | 2024-11-07 09:26 | XMS_ITS | Encounter Summary ---
Author Organization [facility] Address [address] [place] [address]. [place], [place] [address] [place] [address] Care Team Providers Care Telephone Claims Representative Name Role Phone Biju Ang MD Primary Care Provider [phone] Encounter Details Date Type Department Care Team (Latest Contact Info) Description 04/26/2023 Travel Social History Tobacco Use Types Packs/Day [...] suspected to have Coronavirus/COVID-19? No / Unsure 04/26/2023 4:37 PM CDT documented as of this encounter Plan of Treatment Not on file documented as of this encounter Visit Diagnoses Not on filedocumented in this encounter Care Teams Telephone Claims Representative Relationship Specialty Start Date End Date Biju Ang MD [address] [place] [address] PCP - General INTERNAL MEDICINE 04/24/23 documented as of this encounter
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
--- OUTSIDE RECORDS SUMMARY | 2024-11-07 09:26 | XMS_ITS | Encounter Summary ---
Author Organization [facility] Address [address] [place] [address]. [place], [place] [address] [place] [id number] Care Team Providers Care Drain Tile Machine Operator Name Role Phone Frederick Squires MD Primary Care Provider [phone] Reason for Visit * Auth/Cert (Routine) Specialty Diagnoses / Procedures Referred By Summer hodges Referred To Contact Diagnoses RENAL MASS Procedures ROBOTIC ASSISTED LAPAROSCOPIC LEFT PARTIAL NEPHRECTOMY Ari Triplett MD 3 [facility] [address] [place] [id number] Phone: tel: fax: Referral ID Status Reason Start Date Expiration Date Visits Re quested Visits Authorized [id number] 1 1 Encounter Details Date Type Department Care Team (Late st Contact Info) Description 05/02/2023 11:06 AM CDT - 05/02/2023 3:06 PM CDT Surgery [facility] [place], [place] [id number] Ari Triplett MD 3 [facility] [address] [place] [id number] ROBOTIC ASSISTED LAPAROSCOPIC LEFT PARTIAL NEPHRECTOMY Surgery Details Date/Time Status Location OR Service Patient Class Case Class Case Type Trauma Case? 05/02/2023 11:06 AM Posted [facility] OR OR 9 Robotic Morning Admit E - Elective No Panel 1 Procedure LRB Anes Op Region Wound Class Comments ROBOTIC ASSISTED LAPAROSCOPI C LEFT PARTIAL NEPHRECTOMY Left General Kidney Clean Surgeon Surgeon Role Service Panel Ari Triplett MD Primary Robotic 1 Case Notes SCHED WITH VIRGILIO ON 03/13/23 [facility] PHONE ASSESS Special Needs [facility] # [phone] documented in this encounter Social History Tobacco [...] Recorded In the last 10 days, have joo u been in contact with someone who was confirmed or suspected to have Coronavirus/COVID-19? No / Unsure 05/02/2023 9:41 AM CDT documented as of this encounter Last Filed Vital Signs Vital Sign Reading Time Taken Comments Blood Pressure 133/76 05/02/2023 10:18 AM CDT Pulse 61 05/02/2023 10:18 AM CDT Temperature 36.9 ??C (98.5 ??F) 05/02/2023 1 0:18 AM CDT Respiratory Rate 16 05/02/2023 10:1 8 AM CDT Oxygen Saturation 99% 05/02/2023 10: 18 AM CDT Inhaled Oxygen Concentration - - Weight 103.5 kg (228 lb 2.8 oz) 023 10:18 AM CDT Height 182.9 cm (6') 04/24/2023 8:34 AM CDT Body Mass Index 30.95 05/02/2023 10:18 AM CDT documented in this encounter Functional Status * Are you [...] Ross RN Active * Do you have difficulty dressing or bathing? Answer Date of Assessment Author Status No 05/04/2023 3:00 AM HARIST Shea Ross RN Active * Because of a physical, [...] Date Author Status No 05/04/2023 3:00 AM CDShea Mares RN Active documented in this encounter Discharge Summaries * Ari Triplett MD - 05/04/2023 1:09 PM CDT Physician Discharge Summary Patient ID: Ramón Orta Jr. [id number] 67-year-old 1955 Primary Care Physician: FREDERICK SQUIRES [...] this encounter Progress Notes * Amairani Lopez, DIGITAL MEDIA STRATEGIST - 05/04/2023 1:55 PM CDT I delivered the Reinforcement Important Message from Medicare (Subsequent [facility]) to Ramón Orta Jr. and after explaining the form to the patient, the Patient signed the form. The Patient received a copy of the form for their records. ' 05/04/23 1516 Forms Reinforcement Important Message from Medicare (Subsequent [facility]) Signed Copy delivered * Ari Triplett MD [...] Outcome: Met This Shift * Amairani Lopez, DIGITAL MEDIA STRATEGIST - 05/03/2023 3:01 PM CDT Patient lives with spouse, is independent with ADLs and ambulation, plans to return home at discharge, no transportation issues. Insurance verified as [facility] Medicare PCP: Frederick Squires 05/03/23 1500 Referral [...] of major lifestyle changes, including change in [place] living environment No Complex Family concerns No [...] platform to enter Prior Function Level of [place] Independent with ADLs;Independent with functional transfers;Independent with [...] session Interdisciplinary Collaboration RN Cosigned by Ritesh Husain, PT at 05/09/2023 12:01 PM CDT * Amairani Lopez, DIGITAL MEDIA STRATEGIST - 05/03/2023 12:34 PM CDT Advance diet, d/c vicki 05/03/23 1233 Interdisciplinary Group Conference Team Members Present Case/Care management;Nursing;PT/OT;Other (Comment) Barriers to Discharge Barriers Not Medically ready Not Medically ready follow up post op day 1 nephrectomy, d/c vicki, tyrone diet * Ari Triplett MD - 05/03/2023 [...] Height: I/O last 3 completed shifts: In: 1943.1 [P.O.:120; I.V.:1724.1; IV Piggyback:100] Out: 1500 [Urine:1200; Blood:300] PHYSICAL EXAM General: Alert, cooperative, no distress, appears stated age Resp: EWOB, symmetric chest rise CV: Regular rate and rhythm, warm/dry extremities Abdomen: Soft, non-tender, non-distended : Cohen clear yellow urine Extremities:Extremities nl, atraumatic, no cyanosis or edema Pulses: 2+ and symmetric all extremities Psych: Affect and behavior normal Labs: Recent Labs Lab 04/26/23 16405/02/23 1600 WBC 6.7 -- RBC 5.01 -- HGB 15.4 14.6 HCT 45.4 43.6 MCV 90.6 -- MCH 30.7 -- MCHC 33.9 -- PLT 213 -- RDW 13.5 -- MPV 10.0 -- PERNEU 51.6 -- PERLYM 36.4 -- PERMON 9.2 -- LYMC 2.42 -- MONOC 0.61 -- EOSC 0.12 -- BASOC 0.05 -- DTYPE AUTOMATED DIFFERENTIAL -- Recent Labs Lab 04/26/23164505/02/23 1600 NA 138 136 K 3.8 3.7 [...] robotic assisted left partial nephrectomy - D/C cohen - CBC and BMP - Advance to regular diet - Stop IVF Ari Triplett M.D. Urology of [address]???s [facility] [address] [place] [address] * Donna Chan RN - 05/03/2023 3:15 [...] a left renal mass. Imaging was at [facility]. It is a partially exophytic [...] Updated Anabel via phone per report from SOCIAL MEDIA EDITOR Bea. FRANKO House * Bea García RN - 05/02/2023 12:20 PM CDTSummary: OR NURSING NOTE Warm blankets applied to patient upon entering OR. Patients significant other called at 1205 but no answer, 1255 called again no answer, 1305 called by ASU RN Kera and she answered and gave update. 1440 called and given update. Renal artery clamp time [id number]. * Kera Raymond RN - 05/02/2023 11:18 [...] is a 67-year-old man who presents to [facility] with left renal mass. Priorto the procedure, [...] camera trocar placement. The remainder of the assistant store manager and robotic trocars were placed under direct vision. Local anesthetic was given prior to all trocar placement. The robot was then docked. The colon was mobilized off the kidney. The spleen was mobilized off the kidney. The gonadal vein was located. The gonadal vein was dissected up to its junction with the renal vein. Therenal hilum was then dissected. The renal artery and renal vein were dissected. The fat over the kid brad was then opened. There was fat that was adherent to the kidney. I carefully dissected through the stent and found the renal mass. I dissected around the renal mass fully. I then used the ultrasound to tahmina margins around the renal mass. Clamps were then placed on the kidney after mannitol was given. The mass was then sharply extracted. It [...] specimen was then extracted through the widened assistant store manager trocar site. The site was then closed with 0 Vicryl stitches and 0 Vicryl using a Conner Washburn device. The abdomen and kidney were reexamined. Nobleeding were noted. The abdomen was desufflated and all trocars were removed. The incisions were irrigated. The incisions were then closed with 3-0 [...] miles/day. 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 Pt instructed by [...] Case Notes SCHED WITH VIRGILIO ON 03/13/23 [facility] PHONE ASSESS Special Needs [facility] # [phone] PARTIAL THROMBOPLASTIN TIME,PTT STAT 05/02/2023 10:32 AM [...] - 12.9 SEC 05/04/2023 5:23 AM CDT [facility] INR 1.1 05/04/2023 5:23 AM CDT [facility] Comment: Recommended INR Therapeutic Goals: ??2.0-3.0 Routine Therapy ??2.5-3.5 Mechanical Prosthetic Valves (High Risk) 05/04/2023 5:00 AM CDT Ari Triplett MD LABORATORY Final Result [facility] [address] [place] [address], [place] [phone] * (ABNORMAL) BASIC METABOLIC PANEL (05/04/2023 5:00 AM CDT) GLUCOSE 119(H) 70 - 99 MG/DL 05/04/2023 5:32 AM CDT [facility] BUN 25(H) 7 - 18 MG/DL 05/04/2023 5:32 AM CDT [facility] CREATININE S/P/B 1.52(H) 0.7 - 1.3 MG/DL 05/04/2023 5:32 AM CDT [facility] SODIUM S/P/B 136 136 - 145 MMOL/L 05/04/2023 5:32 AM CDT [facility] POTASSIUM S/P/B 4.1 3.5 - 5.1 MMOL/L 05/04/2023 5:32 AM CDT [facility] CHLORIDE S/P/B 106 100 - 108 MMOL/L 05/04/2023 5:32 AM CDT [facility] CO2 26.0 21 - 32 MMOL/L 05/04/2023 5:32 AM CDT [facility] CALCIUM S/P/B 8.8 8.5 - 10.1 MG/DL 05/04/2023 5:32 AM CDT [facility] ANION GAP 4.0(L) 5 - 15 MMOL/L 05/04/2023 5:32 AM CDT [facility] BUN CREATININE RATIO 16.4 6 - 26 05/04/2023 5:32 AM CDT [facility] GFR ESTIMATE 50(L) >90 ML/MIN/1.7 3 M2 05/04/2023 5:32 AM CDT [facility] Comment: NOTE: eGFR is not calculated for patients <18 years of age. This is an estimated GFR calculation using the new CKD EPI creatinine equation without race and so does not require a correction factor for race. This estimated GFR should not be used for calculating drug doses. 05/04/2023 5:00 AM CDT us Ari Triplett MD LABORATORY Final Result [facility] [address] [place] [address], [place] [phone] * (ABNORMAL) CBC W/DIFF AUTOMATED (05/04/2023 5:00 AM CDT) WBC 9.6 4.5 - 11.0 x10'3/uL 05/04/2023 5:15 AM CDT [facility] RBC 4.34(L) 4.70 - 6.10 x10'6/uL 05/04/2023 5:15 AM CDT [facility] HGB 13.4(L) 14.0 - 18.0 G/DL 05/04/2023 5:15 AM CDT [facility] HCT 39.6(L) 43.0 - 54.0 % 05/04/2023 5:15 AM CDT [facility] MCV 91.2 80.0 - 94.0 FL 05/04/2023 5:15 AM CDT [facility] MCH 30.9 27.0 - 31.0 PG 05/04/2023 5:15 AM CDT [facility] MCHC 33.8 32.0 - 36.0 G/DL 05/04/2023 5:15 AM CDT [facility] RDW 13.5 11.5 - 14.5 % 05/04/2023 5:15 AM CDT [facility] PLT 154 130 - 400 x10'3/uL 05/04/2023 5:15 AM CDT [facility] MPV 10.0 9.3 - 12.2 FL 05/04/2023 5:15 AM CDT [facility] DIFFERENTIAL TYPE AUTOMATED DIFFERENTIAL 05/04/2023 5:15 AM CDT [facility] NEUTROPHILS % 69.0 % 05/04/2023 5:15 AM CDT [facility] LYMPHOCYTES % 17.8 % 05/04/2023 5:15 AM CDT [facility] MONOCYTES % 12.3 % 05/04/2023 5:15 AM CDT [facility] EOSINOPHILS 0.2 % 05/04/2023 5:15 AM CDT [facility] BASOPHILS 0.3 % 05/04/2023 5:15 AM CDT [facility] IMMATURE GRANS % 0.4 % 05/04/20 5:15 AM CDT [facility] ABS. NEUTROPHILS TOTAL 6.59 1.80 - 7.70 x10'3/uL 05/04/2023 5:15 AM CDT [facility] ABS. LYMPHOCYTES 1.70 1.00 - 4.80 x10'3/uL 05/04/2023 5:15 AM CDT [facility] ABS. MONOCYTES 1.18(H) 0.30 - 0.82 x10'3/uL 05/04/2023 5:15 AM CDT [facility] ABS. EOSINOPHILS 0.02(L) 0.04 - 0.54 x10'3/uL 05/04/2023 5:15 AM CDT [facility] ABS. BASOPHILS 0.03 0.01 - 0.08 x10'3/uL 05/04/2023 5:15 AM CDT [facility] ABS. IMMATURE GRANULOCYTES 0.04 0.00 - 0.49 x10'3/uL 05/04/2023 5:15 AM CDT [facility] 05/04/2023 5:00 AM CDT Ari Triplett MD LABORATORY Final Result [facility] [address] [place] [address], [place] [phone] * (ABNORMAL) CBC W/DIFF AUTOMATED (05/03/2023 7:40 AM CDT) WBC 9.2 4.5 - 11.0 x10'3/uL 05/03/2023 7:56 AM CDT [facility] RBC 4.47(L) 4.70 - 6.10 x10'6/uL 05/03/2023 7:56 AM CDT [facility] HGB 13.8(L) 14.0 - 18.0 G/DL 05/03/2023 7:56 AM CDT [facility] HCT 40.6(L) 43.0 - 54.0 % 05/03/2023 7:56 AM CDT [facility] MCV 90.8 80.0 - 94.0 FL 05/03/2023 7:56 AM CDT [facility] MCH 30.9 27.0 - 31.0 PG 05/03/2023 7:56 AM CDT [facility] MCHC 34.0 32.0 - 36.0 G/DL 05/03/2023 7:56 AM CDT [facility] RDW 13.4 11.5 - 14.5 % 05/03/2023 7:56 AM CDT [facility] PLT 171 130 - 400 x10'3/uL 05/03/2023 7:56 AM CDT [facility] MPV 9.8 9.3 - 12.2 FL 05/03/2023 7:56 AM T [facility] DIFFERENTIAL TYPE AUTOMATED DIFFERENTIAL 05/03/2023 7:56 AM CDT [facility] NEUTROPHILS % 72.7 % 05/03/2023 7:56 AM CDT [facility] LYMPHOCYTES % 14.6 % 05/03/2023 7:56 AM CDT [facility] MONOCYTES % 12.2 % 05/03/2023 7:56 AM CDT [facility] EOSINOPHILS 0.0 % 05/03/2023 7:56 AM CDT [facility] BASOPHILS 0.1 % 05/03/2023 7:56 AM CDT [facility] IMMATURE GRANS % 0.4 % 05/03/20 7:56 AM CDT [facility] ABS. NEUTROPHILS TOTAL 6.64 1.80 - 7.70 x10'3/uL 05/03/2023 7:56 AM CDT [facility] ABS. LYMPHOCYTES 1.34 1.00 - 4.80 x10'3/uL 05/03/2023 7:56 AM CDT [facility] ABS. MONOCYTES 1.12(H) 0.30 - 0.82 x10'3/uL 05/03/2023 7:56 AM CDT [facility] ABS. EOSINOPHILS 0.00(L) 0.04 - 0.54 x10'3/uL 05/03/2023 7:56 AM CDT [facility] ABS. BASOPHILS 0.01 0.01 - 0.08 x10'3/uL 05/03/2023 7:56 AM CDT [facility] ABS. IMMATURE GRANULOCYTES 0.04 0.00 - 0.49 x10'3/uL 05/03/2023 7:56 AM CDT [facility] 05/03/2023 7:40 AM CDT Ari Triplett MD LABORATORY Final Result [facility] [address] [place] [address], [place] [phone] * (ABNORMAL) BASIC METABOLIC PANEL (05/03/2023 6:30 AM CDT) GLUCOSE 106(H) 70 - 99 MG/DL 05/03/2023 11:55 AM CDT [facility] BUN 7 7 - 18 MG/DL 05/03/2023 11:55 AM CDT [facility] CREATININE S/P/B 0.83 0.7 - 1.3 MG/DL 05/03/2023 11:55 AM CDT [facility] SODIUM S/P/B 137 136 - 145 MMOL/L 05/03/2023 11:55 AM CDT [facility] POTASSIUM S/P/B 3.7 3.5 - 5.1 MMOL/L 05/03/2023 11:55 AM CDT [facility] CHLORIDE S/P/B 107 100 - 108 MMOL/L 05/03/2023 11:55 AM CDT [facility] CO2 24.2 21 - 32 MMOL/L 05/03/2023 11:55 AM CDT [facility] CALCIUM S/P/B 8.4(L) 8.5 - 10.1 MG/DL 05/03/2023 11:55 AM CDT [facility] ANION GAP 5.8 5 - 15 MMOL/L 05/03/2023 11:55 AM CDT [facility] BUN CREATININE RATIO 8.5 6 - 26 05/03/2023 11:55 AM CDT [facility] GFR ESTIMATE >90 >90 ML/MIN/1.7 3 M2 05/03/2023 11:55 AM CDT [facility] Comment: NOTE: eGFR is not calculated for patients <18 years of age. This is an estimated GFR calculation using the new CKD EPI creatinine equation without race and so does not require a correction factor for race. This estimated GFR should not be used for calculating drug doses. 05/03/2023 6:30 AM CDT Ari Triplett MD LABORATORY Final Result [facility] [address] [place] [address], * HEMOGLOBIN AND HEMATOCRIT (05/02/2023 4:00 PM CDT) HGB 14.6 14.0 - 18.0 G/DL 05/02/2023 4:18 PM CDT [facility] HCT 43.6 43.0 - 54.0 % 05/02/2023 4:18 PM CDT [facility] 05/02/2023 4:00 PM CDT Ari Triplett MD LABORATORY Final Result [facility] [address] [place] [address], * (ABNORMAL) BASIC METABOLIC PANEL (05/02/2023 4:00 PM CDT) GLUCOSE 172(H) 70 - 99 MG/DL 05/02/2023 4:37 PM CDT [facility] BUN 17 7 - 18 MG/DL 05/02/2023 4:37 PM CDT [facility] CREATININE S/P/B 1.23 0.7 - 1.3 MG/DL 05/02/2023 4:37 PM CDT [facility] SODIUM S/P/B 136 136 - 145 MMOL/L 05/02/2023 4:37 PM CDT [facility] POTASSIUM S/P/B 3.7 3.5 - 5.1 MMOL/L 05/02/2023 4:37 PM CDT [facility] CHLORIDE S/P/B 108 100 - 108 MMOL/L 05/02/2023 4:37 PM CDT [facility] CO2 25.2 21 - 32 MMOL/L 05/02/2023 4:37 PM CDT [facility] CALCIUM S/P/B 8.6 8.5 - 10.1 MG/DL 05/02/2023 4:37 PM CDT [facility] ANION GAP 2.8(L) 5 - 15 MMOL/L 05/02/2023 4:37 PM CDT [facility] BUN CREATININE RATIO 13.8 6 - 26 05/02/2023 4:37 PM CDT [facility] GFR ESTIMATE 65(L) >90 ML/MIN/1.7 3 M2 05/02/2023 4:37 PM CDT [facility] Comment: NOTE: eGFR is not calculated for patients <18 years of age. This is an estimated GFR calculation using the new CKD EPI creatinine equation without race and so does not require a correction factor for race. This estimated GFR should not be used for calculating drug doses. 05/02/2023 4:00 PM CDT Ari Triplett MD LABORATORY Final Result Performing Organization Address [facility] de Phone Number [facility] [address] [place] [address], [place] [phone] * (ABNORMAL) PROTIME/INR, VENOUS (05/02/2023 10:32 AM CDT) PROTIME 13.0(H) 10.2 - 12.9 SEC 05/02/2023 11:06 AM CDT [facility] INR 1.1 05/02/2023 11:06 AM CDT [facility] Comment: Recommended INR Therapeutic Goals: ??2.0-3.0 Routine Therapy ??2.5-3.5 Mechanical Prosthetic Valves (High Risk) 05/02/2023 10:3 2 AM CDT Ari Triplett MD LABORATORY Final Result Performing Organization Address [facility] Co de Phone Number [facility] [address] [place] [address], [place] [phone] * PTT, PARTIAL THROMBOPLASTIN TIME (05/02/2023 10:32 AM CDT) PTT 30.2 25.1 - 36.5 SEC 05/02/2023 11:06 AM CDT [facility] 05/02/2023 10:3 2 AM CDT Ari Triplett MD LABORATORY Final Result Performing Organization Address [facility] Co de Phone Number [facility] [address] [place] [address], * TYPE & SCREEN (05/02/2023 10:27 AM CDT) ABO/RH A POSITIVE 05/02/2023 11:46 AM CDT [facility] ANTIBODY SCREEN NEGATIVE 05/02/2023 11:46 AM CDT [facility] SAMPLE EXPIRATION 05/05/2023,2 359 05/02/2023 11:46 AM CDT [facility] 05/02/2023 10:2 7 AM CDT Ari Triplett MD BLOOD BANK TEST ORDERABLES Korina l Result Performing Organization Address [facility] Co de Phone Number [facility] [address] [place] [address], * Pathology (05/02/2023 12:00 AM CDT) COPATH REPORT ?[facility] ? [address] ? [place], [place] ??[address] ? [id number] ? Department of Pathology ? Pathology Report ? Addendum ? SURGICAL FINAL REPORT Patient Name: RAMÓN ORTA JR. ? 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 [place], [place]: and/or [employer] [place], [place]. They have not been cleared [...] cassettes C1-C3. ?? ATB:atb Billing Fee Code(s): 89040, 16696, 72700(2), 85164(3) [facility] TISSUE (OTHER (type in comments)) 05/02/2023 12:27 PM CDT us Ari Triplett MD PATHOLOGY/CYTOLOGY ORDERABLES E dited Result - Final [facility] [address] [place] [address], [place] [phone] documented in this encounter Visit Diagnoses Not on filedocumented in this encounter Admitting Diagnoses Diagnosis Renal [...] Given 05/03/2023 7:59 AM CDT 1,000 mg BUpivacaine (PF) (MARCAINE) 0.25 % injection As needed, Starting on Fozia 05/02/23 at 1200, Until Fozia 05/02/23 at 1518, Intra-Op Given 05/02/2023 2:25 PM CDT 5 mLs Abdominal Tissue Given 05/02/2023 12:00 PM CDT 13 mLs A bdominal Tissue docusate sodium (COLACE) capsule 100 mg 100 mg, Oral, 2 times daily, First dose on Fozia 05/02/23 at 2100, Until Discontinued, Post-Op Given 05/04/2023 9:00 AM CDT 100 mg Given 05/03/2023 8:04 PM CDT 100 mg Given 05/03/2023 7:59 AM CDT 100 mg heparin (porcine) injection 5,000 Units 5,000 [...] Given 05/03/2023 7:59 AM CDT 0.2 mg lidocaine (XYLOCAINE) 1 % injection SOLN As needed, Starting on Fozia 05/02/23 at 1200, Until Fozia 05/02/23 at 1518, Intra-Op Given 05/02/2023 2:25 PM CDT 5 mLs Abdominal Tissue Given 05/02/2023 12:00 PM CDT 13 mLs A bdominal Tissue metoprolol tartrate (LOPRESSOR) tablet 25 mg 25 mg, Oral, Nightly, First dose on Fozia 05/02/23 at 2100, Until Discontinued Given 05/03/2023 8:04 PM CDT 25 mg Given 05/02/2023 9:22 PM CDT 25 mg oxidized cellulose 4x8 (SURGICEL) pad As needed, Starting on Fozia 05/02/23 at 1250, Until Fozia 05/02/23 at 1518, Intra-Op Given 05/02/2023 1:57 PM CDT 1 each Operative Site Given 05/02/2023 12:50 PM CDT 1 each O perative Site oxyCODONE immediate release (ROXICODONE) tablet 5 mg 5 mg, Oral, Every 4 hours PRN, Severe pain (Scale 8 - 10), Starting on Fozia 05/02/23 at 1630, Until 05/04/23 at 1612 Given 05/03/2023 4:47 PM CDT 5 mg Given 05/03/2023 12:28 PM CDT 5 mg Given 05/03/2023 5:46 AM CDT 5 mg sodium chloride 0.9 % irrigation Continuous PRN, Starting on Fozia 05/02/23 at 1506, Until Fozia 05/02/23 at 1506, Intra-Op New Bag 05/02/2023 3:06 PM CDT 200 mLs Operative Site warfarin (COUMADIN) tablet 6.5 mg 6.5 mg, [...] tablet 1,000 mg (COMPLETED) 1,000 mg, Oral, airborne sensor specialist to O.R., 1 dose, First dose on [...] Salazar RN) 0110 (Given - Provider: Donna Chan, FRANKO)0759 (Given - Provider: Emerald Fernandez, FRANKO)1228 (Given [...] (COMPLETED) 2 g, Intravenous, at 200 mL/hr, airborne sensor specialist to O.R., 1 dose, First dose on Fozia 05/02/23 at 1015, Pre-Op 1133 (Given - Provider: Chantal Retana CRNA)1143 (Infusion Stop Time - Provider: Chantal Retana CRNA) docusate sodium (COLACE) capsule 100 mg 100 mg, Oral, 2 times daily, First dose on Fozia 05/02/23 at 2100, Until Discontinued, Post-Op 2122 (Given - Provider: Donna Chan RN) 0759 (Given - Provider: Emerald Fernandez RN)2004 (Given - Provider: Katharine Shay, FRANKO) 0900 (Given - Provider: Amna Ignacio RN) famotidine (PF) (PEPCID) injection 20 mg (COMPLETED) 20 mg, Intravenous, Once, 1 dose, On Fozia 05/02/23 at 1115, On admission IV Push over 2 minutes, Pre-Op 1058 (Given - Provider: Kera Raymond, RN) gabapentin (NEURONTIN) capsule 300 mg (COMPLETED) 300 mg, Oral, airborne sensor specialist to O.R., 1 dose, First dose on Fozia 05/02/23 at 1015, Pre-Op 1051 (Given - Provider: Kera Raymond, RN) heparin (porcine) injection 5,000 Units (COMPLETED) 5,000 Units, Subcutaneous, Once, 1 dose, On Fozia 05/02/23 at 1015, preop, Pre-Op 1053 (Given - Provider: Kera Raymond, FRNAKO) heparin (porcine) injection 5,000 Units(Linked Group 1) 5,000 Units, Subcutaneous, Every 12 hours scheduled (2 times per day), First dose on Fozia 05/02/23 at 2100, Until Discontinued, Post-Op 2121 (Given - Provider: Donna Chan, FRANKO) 0759 (Given - Provider: Emerald Fernandez RN)2001 (Not Given - Provider: Katharine Shay RN - Reason: Patient/family declined) 09 (Not Given - Provider: Amna Ignacio, FRANKO - Reason: Patient/family declined) ketorolac (TORADOL) injection 15 mg (CANCELED) 15 mg, Intravenous, Every 6 hours, 20 doses, First dose on Sat05/03/23 at 1330, Last dose on Sat05/08/23 at 0730, For IV administration, give over 15 seconds. 1409 (Given - Provider: Emerald Fernandez RN)1999 (Given - Provider: Katharine Shay RN) 0155 (Given - Provider: Katharine Shay RN)0900 (Given [...] minutes., Post-Op 1842 (Given - Provider: Emerald Fernandez, FRANKO)2217 (Given - Provider: Donna Chan RN) 0759 (Given - Provider: Emerald Fernandez RN)2154 (Given - Provider: Katharine Shay, RN) 0453 (Given - Provider: Katharine Shay, FRANKO) lidocaine (XYLOCAINE) 1 % injection SOLN (CANCELED) As needed, Starting on Fozia 05/02/23 at 1200, Until Ofzia 05/02/23 at 1518, Intra-Op 1200 (Given - [...] at 1612 1703 (Given - Provider: Tab Salazar, FRANKO)2122 (Given - Provider: Donna Chan RN) 0110 (Given - Provider: Donna Chan RN)0546 (Given - Provider: Donna Chan RN)1228 (Given - Provider: Emerald Fernandez, FRANKO)1647 (Given - Provider: Emerald Fernandez RN) sodium [...] (COMPLETED) documented in this encounter Care Teams Drain Tile Machine Operator Relationship Specialty Start Date End Date Frederick Squires MD [address] [place] [address] PCP - General INTERNAL MEDICINE 04/24/23 documented as of this encounter
--- OUTSIDE RECORDS SUMMARY | 2024-11-07 09:26 | XMS_ITS | Encounter Summary ---
Author Organization [facility] Address [address] [place] [address]. [place], [place] [id number] [place] [address] Care Team Providers Care Machine Ceramic Coater Name Role Phone Biju Ang MD Primary Care Provider [phone] Encounter Details Date Type Department Care Team (Late st Contact Info) Description 04/26/2023 4:35 PM CDT - 04/26/2023 11:59 PM CDT Hospital Encounter [facility] [place] [address] Ari Triplett MD 3 [facility] [address] [place] [address] Discharge Disposition: Home or Self Care (Routine [...] PM CDT documented as of this encounter Medications at Time of Discharge [...] needed for Pain. 30 tablet 05/04/2023 05/14/2023 acetaminophen CR (TYLENOL) 650 MG Tab CR 8 hr tablet Take 1 tablet (650 mg total) by mouth every 6 (six) hours as needed. 05/04/2023 docusate sodium (COLACE) 100 MG capsule Take [...] 05/04/2023 05/07/2023 documented as of this encounter Plan of Treatment Not on file documented as of this encounter Procedures Procedure Name Priority Date/Time Associated Diagnosis Comments COMPREHENSIVE METABOLIC PANEL Routine 04/26/2023 4:46 PM CDT Renal mass Preop examination HC BLOOD TYPING ABO Routine 04/26/2023 4 :46 PM CDT CBC W/DIFF AUTOMATED Routine 04/26/2023 4:46 PM CDT Renal mass Preop examination URINALYSIS WI REFLEX TO CULTURE Routine 04/26/2023 4:43 PM CDT Renal mass Preop examination URINE BACTERIA CULTURE Routine 4:43 PM CDT Renal mass Preop examination documented in this encounter Results * BLOOD TYPING, ABO AND RH (04/26/2023 4:46 PM CDT) ABO/RH A POSITIVE 04/26/2023 7:12 PM CDT [facility] 04/26/2023 4:46 PM CDT us Ari Triplett MD BLOOD BANK TEST ORDERABLES Korina cyn Result [facility] [address] [place] [address], [place] [phone] * (ABNORMAL) COMPREHENSIVE METABOLIC PANEL (04/26/2023 4:46 PM CDT) [facility] GLUCOSE 99 70 - 99 MG/DL 04/26/2023 5:59 PM CDT [facility] BUN 20(H) 7 - 18 MG/DL 04/26/2023 5:59 PM CDT [facility] CREATININE S/P/B 1.02 0.7 - 1.3 MG/DL 04/26/2023 5:59 PM CDT [facility] SODIUM S/P/B 138 136 - 145 MMOL/L 04/26/2023 5:59 PM CDT [facility] POTASSIUM S/P/B 3.8 3.5 - 5.1 MMOL/L 04/26/2023 5:59 PM CDT [facility] CHLORIDE S/P/B 111(H) 100 - 108 MMOL/L 04/26/2023 5:59 PM CDT [facility] CO2 26.2 21 - 32 MMOL/L 04/26/2023 5:59 PM CDT [facility] CALCIUM S/P/B 9.4 8.5 - 10.1 MG/DL 04/26/2023 5:59 PM CDT [facility] BILIRUBIN TOTAL S/P/B 0.5 0.2 - 1.2 MG/DL 04/26/2023 5:59 PM CDT [facility] Comment: THIS ASSAY IS NOT RECOMMENDED FOR PATIENTS UNDERGOING TREATMENT WITH ELTROMBOPAG DUE TO THE POTENTIAL FOR FALSELY ELEVATED RESULTS. TOTAL PROTEIN S/P/B 7.8 6.4 - 8.2 G/DL 04/26/2023 5:59 PM CDT [facility] ALBUMIN S/P/B 4.1 3.4 - 5.0 G/DL 04/26/2023 5:59 PM CDT [facility] AST 16 15 - 37 U/L 04/26/2023 5:59 PM CDT [facility] ALT 31 16 - 60 U/L 04/26/2023 5:59 PM CDT [facility] ALKALINE PHOSPHATASE S/P/B 61 50 - 136 U/L 04/26/2023 5:59 PM CDT [facility] ANION GAP 0.8(L) 5 - 15 MMOL/L 04/26/2023 5:59 PM CDT [facility] BUN CREATININE RATIO 19.6 6 - 26 04/26/2023 5:59 PM CDT [facility] A/G RATIO 1.1 1.0 - 2.0 RATIO 04/26/2023 5:59 PM CDT [facility] GFR ESTIMATE 81(L) >90 ML/MIN/1.7 3 M2 04/26/2023 5:59 PM CDT [facility] Comment: NOTE: eGFR is not calculated for patients <18 years of age. This is an estimated GFR calculation using the new CKD EPI creatinine equation without race and so does not require a correction factor for race. This estimated GFR should not be used for calculating drug doses. 04/26/2023 4:46 PM CDT us Ari Triplett MD LABORATORY Final Result [facility] [address] [place] [address], * CBC W/DIFF AUTOMATED (04/26/2023 4:46 PM CDT) [facility] WBC 6.7 4.5 - 11.0 x10'3/uL 04/26/2023 5:34 PM CDT [facility] RBC 5.01 4.70 - 6.10 x10'6/uL 04/26/2023 5:34 PM CDT [facility] HGB 15.4 14.0 - 18.0 G/DL 04/26/2023 5:34 PM CDT [facility] HCT 45.4 43.0 - 54.0 % 04/26/2023 5:34 PM CDT [facility] MCV 90.6 80.0 - 94.0 FL 04/26/2023 5:34 PM CDT [facility] MCH 30.7 27.0 - 31.0 PG 04/26/2023 5:34 PM CDT [facility] MCHC 33.9 32.0 - 36.0 G/DL 04/26/2023 5:34 PM CDT [facility] RDW 13.5 11.5 - 14.5 % 04/26/2023 5:34 PM CDT [facility] PLT 213 130 - 400 x10'3/uL 04/26/2023 5:34 PM CDT [facility] MPV 10.0 9.3 - 12.2 FL 04/26/2023 5:34 PM CDT [facility] DIFFERENTIAL TYPE AUTOMATED DIFFERENTIAL 04/26/2023 5:34 PM CDT [facility] NEUTROPHILS % 51.6 % 04/26/2023 5:34 PM CDT [facility] LYMPHOCYTES % 36.4 % 04/26/2023 5:34 PM CDT [facility] MONOCYTES % 9.2 % 04/26/2023 5:34 PM CDT [facility] EOSINOPHILS 1.8 % 04/26/2023 5:34 PM CDT [facility] BASOPHILS 0.8 % 04/26/2023 5:34 PM CDT [facility] IMMATURE GRANS % 0.2 % 04/26/20 5:34 PM CDT [facility] ABS. NEUTROPHILS TOTAL 3.44 1.80 - 7.70 x10'3/uL 04/26/2023 5:34 PM CDT [facility] ABS. LYMPHOCYTES 2.42 1.00 - 4.80 x10'3/uL 04/26/2023 5:34 PM CDT [facility] ABS. MONOCYTES 0.61 0.30 - 0.82 x10'3/uL 04/26/2023 5:34 PM CDT [facility] ABS. EOSINOPHILS 0.12 0.04 - 0.54 x10'3/uL 04/26/2023 5:34 PM CDT [facility] ABS. BASOPHILS 0.05 0.01 - 0.08 x10'3/uL 04/26/2023 5:34 PM CDT [facility] ABS. IMMATURE GRANULOCYTES 0.01 0.00 - 0.49 x10'3/uL 04/26/2023 5:34 PM CDT [facility] 04/26/2023 4:46 PM CDT us Ari Triplett MD LABORATORY Final Result [facility] [address] [place] [address], [place] [phone] * CULTURE URINE (04/26/2023 4:43 PM CDT) SPEC DESCRIPTION URINE CLEAN CATCH 04/26/2023 4:44 PM CDT [facility] SPECIAL REQUESTS NO SPECIAL REQUEST 04/26/2023 4:44 PM CDT [facility] CULTURE RESULT NO GROWTH 2 DAYS 04/28/2023 10:27 AM CDT [facility] URINE SPECIMEN OBTAINED BY CLEAN CATCH PROCEDURE / Unknown 04/26/2023 4:43 PM CDT 04/26/2023 4:59 PM CDT us Ari Triplett MD MICROBIOLOGY - GENERAL ORDERABL ES Final Result [facility] [address] [place] [address], [place] [phone] * URINALYSIS WI REFLEX TO CULTURE (04/26/2023 4:43 PM CDT) Pathologist [facility] SPECIMEN TYPE URINE CLEAN CATCH 04/26/2023 4:44 PM CDT [facility] COLOR (U) LIGHT YELLOW 04/26/2023 5:32 PM CDT [facility] TRANSPARENCY CLEAR 04/26/2023 5:32 PM CDT [facility] SPECIFIC GRAVITY (U) 1.026 1.001 - 1.030 04/26/2023 5:32 PM CDT [facility] U PH 5.5 5.0 - 9.0 04/26/2023 5:32 PM CDT [facility] LEUKOCYTES (U) NEGATIVE NEGATIVE 04/26/2023 5:32 PM CDT [facility] NITRITES NEGATIVE NEGATIVE 04/26/2023 5:32 PM CDT [facility] PROTEIN (U) NEGATIVE <30 MG/DL 04/26/2023 5:32 PM CDT [facility] URINE GLUCOSE NORMAL NORMAL MG/DL 04/26/2023 5:32 PM CDT [facility] KETONES MG/DL (U) NEGATIVE NEGATIVE MG/DL 04/26/2023 5:32 PM CDT [facility] UROBILINOGEN NORMAL NORMAL MG/DL 04/26/2023 5:32 PM CDT [facility] BILIRUBIN (U) NEGATIVE NEGATIVE MG/DL 04/26/2023 5:32 PM CDT [facility] BLOOD (U) NEGATIVE NEGATIVE 04/26/2023 5:32 PM CDT [facility] CULTURE & SENSITIVITY INDICATED? CULTURE IS NOT INDICATED 04/26/2023 5:32 PM CDT [facility] MUCUS RARE /LPF 04/26/2023 5:32 PM CDT [facility] WBC/HPF 1 <6 /HPF 04/26/2023 5:32 PM CDT [facility] RBC/HPF 1 <6 /HPF 04/26/2023 5:32 PM CDT [facility] SQUAMOUS EPITHELIALS RARE /HPF 04/26/2023 5:32 PM CDT [facility] URINE SPECIMEN OBTAINED BY CLEAN CATCH PROCEDURE / Unknown 04/26/2023 4:43 PM CDT Ari Triplett MD URINE ORDERABLES Final Result [facility] [address] [place] [address], documented in this encounter Visit Diagnoses Diagnosis Renal mass Unspecified disorder of kidney and ureter Preop examination Preoperative examination, unspecified documented in this encounter Care Teams Machine Ceramic Coater Relationship Specialty Start Date End Date Biju Ang MD [facility] [place] [address] [place] [address] PCP - General INTERNAL MEDICINE 04/24/23 documented as of this encounter
--- OUTSIDE RECORDS SUMMARY | 2024-11-07 09:26 | XMS_ITS | Encounter Summary ---
Author Organization [facility] Address [address] [place] [address]. [place] [address] [place] [address] Care Team Providers Care Manager Fund Name Role Phone Biju Ang MD Primary Care Provider [phone] Encounter Details Date Type Department Care Team (Late st Contact Info) Description 04/24/2023 Prep for Procedure [facility] Laboratory [address] [place], [place] [address] Ari Triplett MD 3 [facility] [address] [place] [address] Social History Tobacco Use Types Packs/Day Years [...] on file documented as of this encounter Results * (ABNORMAL) COMPREHENSIVE METABOLIC PANEL (04/26/2023 4:46 PM CDT) [facility] Signature GLUCOSE 99 70 - 99 MG/DL 04/26/2023 5:59 PM CDT [facility] BUN 20(H) 7 - 18 MG/DL 04/26/2023 5:59 PM CDT [facility] CREATININE S/P/B 1.02 0.7 - 1.3 MG/DL 04/26/2023 5:59 PM CDT [facility] SODIUM S/P/B 138 136 - 145 MMOL/L 04/26/2023 5:59 PM CDT [facility] POTASSIUM S/P/B 3.8 3.5 - 5.1 MMOL/L 04/26/2023 5:59 PM CDT [facility] CHLORIDE S/P/B 111(H) 100 - 108 MMOL/L 04/26/2023 5:59 PM CDT [facility] CO2 26.2 21 - 32 MMOL/L 04/26/2023 5:59 PM CDT [facility] CALCIUM S/P/B 9.4 8.5 - 10.1 MG/DL 04/26/2023 5:59 PM CDT [facility] BILIRUBIN TOTAL S/P/B 0.5 0.2 - 1.2 MG/DL 04/26/2023 5:59 PM CDT [facility] Comment: THIS ASSAY IS NOT RECOMMENDED FOR PATIENTS UNDERGOING TREATMENT WITH ELTROMBOPAG DUE TO THE POTENTIAL FOR FALSELY ELEVATED RESULTS. TOTAL PROTEIN S/P/B 7.8 6.4 - 8.2 G/DL 04/26/2023 5:59 PM CDT [facility] ALBUMIN S/P/B 4.1 3.4 - 5.0 G/DL 04/26/2023 5:59 PM CDT [facility] AST 16 15 - 37 U/L 04/26/2023 5:59 PM CDT [facility] ALT 31 16 - 60 U/L 04/26/2023 5:59 PM CDT [facility] ALKALINE PHOSPHATASE S/P/B 61 50 - 136 U/L 04/26/2023 5:59 PM CDT [facility] ANION GAP 0.8(L) 5 - 15 MMOL/L 04/26/2023 5:59 PM CDT [facility] BUN CREATININE RATIO 19.6 6 - 26 04/26/2023 5:59 PM CDT [facility] A/G RATIO 1.1 1.0 - 2.0 RATIO 04/26/2023 5:59 PM CDT [facility] GFR ESTIMATE 81(L) >90 ML/MIN/1.7 3 M2 04/26/2023 5:59 PM CDT [facility] Comment: NOTE: eGFR is not calculated for patients <18 years of age. This is an estimated GFR calculation using the new CKD EPI creatinine equation without race and so does not require a correction factor for race. This estimated GFR should not be used for calculating drug doses. 04/26/2023 4:46 PM CDT Ari Triplett MD LABORATORY Final Result [facility] [address] [place] [address], [place] [phone] * CBC W/DIFF AUTOMATED (04/26/2023 4:46 PM CDT) WBC 6.7 4.5 - 11.0 x10'3/uL 04/26/2023 5:34 PM CDT [facility] RBC 5.01 4.70 - 6.10 x10'6/uL 04/26/2023 5:34 PM CDT [facility] HGB 15.4 14.0 - 18.0 G/DL 04/26/2023 5:34 PM CDT [facility] HCT 45.4 43.0 - 54.0 % 04/26/2023 5:34 PM CDT [facility] MCV 90.6 80.0 - 94.0 FL 04/26/2023 5:34 PM CDT [facility] MCH 30.7 27.0 - 31.0 PG 04/26/2023 5:34 PM CDT [facility] MCHC 33.9 32.0 - 36.0 G/DL 04/26/2023 5:34 PM CDT [facility] RDW 13.5 11.5 - 14.5 % 04/26/2023 5:34 PM CDT [facility] PLT 213 130 - 400 x10'3/uL 04/26/2023 5:34 PM CDT [facility] MPV 10.0 9.3 - 12.2 FL 04/26/2023 5:34 PM CDT [facility] DIFFERENTIAL TYPE AUTOMATED DIFFERENTIAL 04/26/2023 5:34 PM CDT [facility] NEUTROPHILS % 51.6 % 04/26/2023 5:34 PM CDT [facility] LYMPHOCYTES % 36.4 % 04/26/2023 5:34 PM CDT [facility] MONOCYTES % 9.2 % 04/26/2023 5:34 PM CDT [facility] EOSINOPHILS 1.8 % 04/26/2023 5:34 PM CDT [facility] BASOPHILS 0.8 % 04/26/2023 5:34 PM CDT [facility] IMMATURE GRANS % 0.2 % 04/26/20 5:34 PM CDT [facility] ABS. NEUTROPHILS TOTAL 3.44 1.80 - 7.70 x10'3/uL 04/26/2023 5:34 PM CDT [facility] ABS. LYMPHOCYTES 2.42 1.00 - 4.80 x10'3/uL 04/26/2023 5:34 PM CDT [facility] ABS. MONOCYTES 0.61 0.30 - 0.82 x10'3/uL 04/26/2023 5:34 PM CDT [facility] ABS. EOSINOPHILS 0.12 0.04 - 0.54 x10'3/uL 04/26/2023 5:34 PM CDT [facility] ABS. BASOPHILS 0.05 0.01 - 0.08 x10'3/uL 04/26/2023 5:34 PM CDT [facility] ABS. IMMATURE GRANULOCYTES 0.01 0.00 - 0.49 x10'3/uL 04/26/2023 5:34 PM CDT [facility] 04/26/2023 4:46 PM CDT us Ari Triplett MD LABORATORY Final Result [facility] [address] [place] [address], [place] [phone] * CULTURE URINE (04/26/2023 4:43 PM CDT) SPEC DESCRIPTION URINE CLEAN CATCH 04/26/2023 4:44 PM CDT [facility] SPECIAL REQUESTS NO SPECIAL REQUEST 04/26/2023 4:44 PM CDT [facility] CULTURE RESULT NO GROWTH 2 DAYS 04/28/2023 10:27 AM CDT [facility] URINE SPECIMEN OBTAINED BY CLEAN CATCH PROCEDURE / Unknown 04/26/2023 4:43 PM CDT 04/26/2023 4:59 PM CDT us Ari Triplett MD MICROBIOLOGY - GENERAL ORDERABL ES Final Result [facility] [address] [place] [address], [place] [phone] * URINALYSIS WI REFLEX TO CULTURE (04/26/2023 4:43 PM CDT) SPECIMEN TYPE URINE CLEAN CATCH 04/26/2023 4:44 PM CDT [facility] COLOR (U) LIGHT YELLOW 04/26/2023 5:32 PM CDT [facility] TRANSPARENCY CLEAR 04/26/2023 5:32 PM CDT [facility] SPECIFIC GRAVITY (U) 1.026 1.001 - 1.030 04/26/2023 5:32 PM CDT [facility] U PH 5.5 5.0 - 9.0 04/26/2023 5:32 PM CDT [facility] LEUKOCYTES (U) NEGATIVE NEGATIVE 04/26/2023 5:32 PM CDT [facility] NITRITES NEGATIVE NEGATIVE 04/26/2023 5:32 PM CDT [facility] PROTEIN (U) NEGATIVE <30 MG/DL 04/26/2023 5:32 PM CDT [facility] URINE GLUCOSE NORMAL NORMAL MG/DL 04/26/2023 5:32 PM CDT [facility] KETONES MG/DL (U) NEGATIVE NEGATIVE MG/DL 04/26/2023 5:32 PM CDT [facility] UROBILINOGEN NORMAL NORMAL MG/DL 04/26/2023 5:32 PM CDT [facility] BILIRUBIN (U) NEGATIVE NEGATIVE MG/DL 04/26/2023 5:32 PM CDT [facility] BLOOD (U) NEGATIVE NEGATIVE 04/26/2023 5:32 PM CDT [facility] CULTURE & SENSITIVITY INDICATED? CULTURE IS NOT INDICATED 04/26/2023 5:32 PM CDT [facility] MUCUS RARE /LPF 04/26/2023 5:32 PM CDT [facility] WBC/HPF 1 <6 /HPF 04/26/2023 5:32 PM CDT [facility] RBC/HPF 1 <6 /HPF 04/26/2023 5:32 PM CDT [facility] SQUAMOUS EPITHELIALS RARE /HPF 04/26/2023 5:32 PM CDT [facility] URINE SPECIMEN OBTAINED BY CLEAN CATCH PROCEDURE / Unknown 04/26/2023 4:43 PM CDT Ari Triplett MD URINE ORDERABLES Final Result [facility] [address] [place] [address], documented in this encounter Visit Diagnoses Diagnosis Renal mass- Primary Unspecified disorder of kidney and ureter Preop examination Preoperative examination, unspecified documented in this encounter Care Teams Manager Fund Relationship Specialty Start Date End Date Biju Ang MD [address] [place] [address] [place] [address] PCP - General INTERNAL MEDICINE 04/24/23 documented as of this encounter
--- OUTSIDE RECORDS SUMMARY | 2024-11-07 09:27 | XMS_ITS | Encounter Summary ---
Author Organization [facility] Address [address] [place] [address] Phone Care Team Providers Care Production Broaching Machine Operator Name Role Phone Biju Ang MD Primary Care Provider [phone] Reason for Referral * Diagnostic Imaging (Routine) - Closed Specialty Diagnoses / Procedures Referred By Contac t Referred To Contact Diagnoses Ocular histoplasmosis syndrome of both eyes Procedures OCT, Retina - OU - Both Eyes Michael Parham MD [address] [place] [address] Phone: tel: fax: [facility] (All Locations) Referral ID Status Reason Start Date Expiration Date Visits Re quested Visits Authorized [id number] Closed 03/04/2023 04/02/2024 1 1 Reason for Visit * Reason Comments histoplamosis Encounter Details Date Type Department Care Team (Latest Contact Info) Description 03/04/2023 10:15 AM CDT Office Visit [facility] Ophthalmology [address] 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 Will followwith FAF and OCT, can consider therapy if CNV recurs or the number of spots increases. 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 Continue to observe Follow up in 3 months with DFE, OCT macula, and FAF, sooner as needed. documented in this encounter Miscellaneous Notes * Assessment & Plan Note - Michael Parham MD - 03/04/2023 8:02 PM CDT Associated Problem(s): Ocular histoplasmosis syndrome of both eyes I think this is unlikely to be inflammatory but PIC can occasionally present similarly. Will followwith FAF and OCT, can consider therapy if CNV recurs or the number of spots increases. 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 Continue to observe documented in this encounter Plan of Treatment Not on file documented as of this encounter Procedures Procedure Name Priority Date/Time Associated Diagnosis Comments OCT, RETINA - OU - BOTH EYES Routine 03/04/2023 7:59 PM CDT Ocular histoplasmosis syndrome of both eyes FUNDUS PHOTOS/FAF - OU - BOTH EYES Routine 03/04/2023 7:56 PM CDT Ocular histoplasmosis syndrome of both eyes documented in this encounter Results * OCT, Retina - OU - Both Eyes (03/04/2023 7:59 PM CDT) Anatomical Region Laterality Modality Head Optical Coherenc e Tomography Narrative 03/04/2023 7:59 PM CDT OD: normal, baseline OS: 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, baseline Michael Parham MD OPHTH TOMOGRAPHY Final Res ult * Fundus Photos/FAF - OU - Both Eyes (03/04/2023 7:56 PM CDT) Anatomical Region Laterality Modality Head Fundus Photograp hy Narrative 03/04/2023 7:56 PM CDT Fundus photo: documents clinical exam FAF: multiple small spots of hypoautofluorescence, no areas of hyperautofluorescence Michael Parham MD OPHTH PHOTOGRAPHY Final Re sult documented in this encounter Visit Diagnoses Diagnosis 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 warfarin (COUMADIN) 1 mg tablet TK THREE TS PO QD UTD 08/25/2019 metoprolol tartrate (LOPRESSOR) 25 mg immediate release tablet Take 1 tablet (25 mg total) by mouth 2 (two) times a day 12/30/2022 added in this encounter Eye Exam Visual Acuity (Snellen - Linear) Right eye Left eye Dist sc 20/25 +2 20/25 Tonometry (Tonopen, 11:17 AM) Right eye Left eye Pressure 17 19 Pupils Dark Light Shape React APD Right eye 3.5 2 Round Brisk None Left eye 3.5 2 Round Brisk None Visual Richards Right eye Left eye Full Full Extraocular Movement Right eye Left eye Full Full Dilation Both eyes: 1.0% Mydriacyl @ 11:17 AM Slit Lamp Exam Right eye Left eye Lids/Lashes Normal Normal Conjunctiva/Sclera White and quiet White and diane et Cornea Epithelial cyst centrally Clear Anterior Chamber Deep and quiet Deep and quiet Iris Round and reactive Round and celestina ctive Lens 2+ NSC 2+ NSC Anterior Vitreous Normal Rare cell Fundus Exam Right eye Left eye Disc Mild PPA Mild PPA C/D Ratio 0.2 0.2 Macula Normal Subfoveal pigmen hayde scar Vessels Normal Normal Periphery Few small hyperpigme nte scars IT and IN Hyperpgimented scars 360, greatest IN Care Teams Production Broaching Machine Operator Relationship Specialty Start Date End Date Biju Ang MD [address] [facility] [address] [place] [address] PCP - General Internal Medicine 01/22/23 documented as of this encounter
--- OUTSIDE RECORDS SUMMARY | 2024-11-07 09:27 | XMS_ITS | Continuity of Care Document ---
Author Organization [employer] Address [address] [place] [address] Phone Care Team Providers Care Escapement Maker Name Role Phone Darryn Mcarthur MD Unavailable Unavailable Advance Directives Directive Yes / No Effective Date File Name No Information Encounters Encounter Description Practice Location Reason(s) For Visit Diagnoses Date Provider Providers Copied on Encounter [facility], [address], [place], [place], [id number], [place] tel:[phone] [facility] No Information Lyubov Cates. [address] [facility], [address], [place], [place], [address]. tel:[phone] Family History Family Member Type Diagnosis Age At Onset No Information Payers Payer name Insurance type Covered alliance party ID Authoriza tion(s) [facility] CI [id number] Social History Type Description Quantity Date Captured Comments Sex Female Smoking Status No Information Chief Complaint And Reason For Visit No Information Reason For Referral Reason For Referral No Information History Of Present Illness Encounter Date Complaint History Of Prese nt Illness No Information Functional Status Date Functional Assessmen t No Information Instructions Date Instruction Additional Infor mation No Information Assessments Type Assessment Date No Information Patient Care Teams Name Effective Dates (start - stop) Status Members No Information
--- OUTSIDE RECORDS SUMMARY | 2024-11-07 09:27 | XMS_ITS | Data Portability ---
Author Organization [facility] [email or web address], Main Office Address [address] [place] [address] Care Team Providers Care Electronic Die Maker Name Role Phone SALAZAR LANDEROS Primary Care Provider [phone] Assessment No assessment recorded. Plan of Treatment Reminders Order Date Submit Date Provider Last Modified By Organization Details Last Modified Time Details Appointments None recorded. Lab None recorded. Referral None recorded. Procedures None recorded. Surgeries None recorded. Imaging None recorded. Medication Orders Ciprodex 0.3 %-0.1 % ear drops,suspe nsion 2023 [facility] [address] [place], [address], 4 16:26:21 amoxicillin 875 mg-potassiu m clavulanate 125 mg tablet 2023 [facility] [address] [place], [address], 4 16:26:22 Patient TargetsNo targets recorded. Patient Instructions Encounter Date Encounter Id Patient Instructions Last Modified By Organization Details Last Modified Time 07/23/2024 [id number] If symptoms persist or worsen after completion of medication, return to office for further evaluation. [email or web address] Not available 07/23/2024 16:26:52 Reason for Referral None Reported. Problems Name Problem SNOMED Code Status Onset Date Resolution Date Notes Provider Name and Address Organization Details Recorded Time Acute serous otitis media of bilateral ears [id number] 07 Active 2023 ARNAUD Wei [address] [facility], [facility] [address], [place], [address] , [facility] [employer] 16:21:14 Problem Notes None recorded. Medical Equipment None Reported. Allergies No known drug allergies Medications Name Sig Start Date Stop Date Status Note LastModified by Organization Details LastModified Time donepezil 5 mg tablet TAKE 1 TABLET BY MOUTH EVERY DAY AT BEDTIME 07/23 completed Not Available Not Available Not Available ondansetron HCl 4 mg tablet TAKE 1 TABLET BY MOUTH EVERY 6 HOURS NEEDED FOR NAUSEA active Not Available Not Available No t Available tramadol 50 mg tablet TAKE 1 TO 2 TABLETS BY MOUTH EVERY 6 HOURS NEEDED active Not Available Not Available No t Available warfarin 4 mg tablet TAKE 1 TABLET BY MOUTH ONCE DAILY DIRECTED active Not Available Not Available No t Available oxycodone-a cetaminophe n 5 mg-325 mg tablet TAKE 1 TABLET BY MOUTH EVERY 6 HOURS NEEDED FOR PAIN active Not Available Not Available No t Available warfarin 5 mg tablet TAKE 1 TABLET BY MOUTH ONCE DAILY DIRECTED 07/23 completed Not Available Not Available Not Available docusate sodium 100 mg capsule TAKE ONE CAPSULE BY MOUTH TWICE DAILY 07/23 completed Not Available Not Available Not Available mupirocin 2 % topical ointment APPLY A THIN LAYER OF OINTMENT TOPICALLY TO AFFECTED AREA OF LEFT ANKLE WEEKLY UNTIL WOUND IS HEALED 07/23 completed Not Available Not Available Not Available warfarin 1 mg tablet TAKE 1 TABLET BY MOUTH ONCE DAILY active Not Available Not Available No t Available amoxicillin 875 mg-potassiu m clavulanate 125 mg tablet TAKE 1 TABLET BY MOUTH EVERY 12 HOURS FOR 7 DAYS active Not Available Not Available No t Available enoxaparin 100 mg/mL subcutaneou s syringe INJECT 100 MG SUBCUTANE OUSLY ONCE DAILY 07/23 completed Not Available Not Available Not Available ciprofloxac in 0.3 %-dexametha sone 0.1 % ear drops,suspe nsion INSTILL 4 DROPS INTO AFFECTED EAR(S) TWICE DAILY FOR 7 DAYS active Not Available Not Available No t Available metoprolol tartrate 25 mg tablet TAKE 1 TABLET BY MOUTH TWICE DAILY 07/23 completed Not Available Not Available Not Available magnesium active Not Available Not Terese ilable Not Available warfarin 07/23 completed Not Available Not Available Not Available metoprolol succinate active Not Available Not Available No t Available Multi Vitamin active Not Available Not Available Not Available turmeric active Not Available Not Avai lable Not Available Vitals Date Recorded Body height Body mass index (BMI) Body weight Body temperature Provider Name and Address Organization Details Last Updated DateTime 07/23/2024 182.88 cm 31.9 kg/m2 659304.93 g 99 [degF] Dalila Diane MICAH [facility] [employer] [facility] 07/23/2024 15:46:45 Social History Question Answer Notes LastModified by Organizat ion Details LastModified Time Tobacco Smoking Status Never Smoker Lisa Fermin destin, [facility] [employer] [facility] 07/23/2024 14:31:13 What Is Your Level Of Alcohol Consumption? None [email or web address] Information not available 07/23/2024 Sex: Unknown Functional Status None recorded. Mental Status None recorded. Family History Nothing Reported Notes:no ent Medical History Condition Response MRSA N ALLERGIES/HAYFEVER N BACK INJECTIONS N LUNG DISEASE/DISORDER N ESRD N HISTORY OF DRUG ABUSE N INSOMNIA N COPD N RADIATION / CHEMOTHERAPY N HIGH CHOLESTEROL / HYPERLIPIDEMIA N HYPERTHYROIDISM N PVD N BLOOD DISEASES Y EAR OR HEARING PROBLEMS N HYPOTHYROIDISM N SHINGLES N DEPRESSION (INCLUDING POST ) N BACK / NECK PROBLEMS N HAVE YOU BEEN HOSPITALIZED OR SEEN IN [facility] ER IN THE PAST YEAR ? N FAILED BACK SYNDROME N STROKE/TIA N POLYCYSTIC OVARIES N OBESITY N ANEURYSM N HISTORY WITH COMPLICATIONS WITH ANESTHES IA ? N Do you have Advance directive? N USE OF BLOOD THINNERS N NO SIGNIFICANT PAST MEDICAL HISTORY N DIABETES, TYPE N VON WILLIBRAND'S DISEASE N PARATHYROID DISEASE N ENT Y SEASONAL ALLERGIES N HEARTBURN / REFLUX N POST LAMINECTOMY SYNDROME N HEPATITIS / LIVER DISEASE N SLEEP DISORDER Y ARTERIAL INSUFFICIENCY N SEIZURES/EPILEPSY N HEADACHES/MIGRAINES N CHF N PACEMAKER N DIZZINESS N HEART DISEASE/HEART PROBLEMS N AIDS/HIV N NEUROPSYCHOLOGICAL N HYPERTENSION N CANCER: SPECIFY N TOURETTE'S N BLOOD TRANSFUSION N ANESTHESIA COMPLICATIONS N ANEMIA/BLOOD DISORDER N CHRONIC EAR INFECTIONS N ATRIAL FIBRILLATION N AUTOIMMUNE DISEASE N TUBERCULOSIS N Past Encounters Encounter ID Performer Location Encounter Start Date Encounter Closed Date Diagnosis/Indication Diagnosis SNOMED-CT Code Diagnosis ICD10 Code [id number] ARNAUD Wei [facility] [place] [address] [place] [address] 07/23/2024 15:36:53 07/23/2024 16:27:31 Acute serous otitis media of bilateral ears [id number] 868516 H65.03 Health Concerns Section Related Observation LastModified by Organization Detai ls LastModified Time None Recorded Concern Status LastModified by Organization Details LastModified Time None Recorded Advance Directives Directive None Recorded Payers Encounter Date Sequence Insurance Name Policy Number Policy Dunlap Covered Member ID Dunlap Member ID Guarantor Name 07/23/2024 1 [employer] (MEDICARE REPLACEMENT PPO) [id number] Ramón Orta [id number] Ramón Orta Notes Date Note Type Note Provider Name and Address Organization Details Recorded Time 07/23/2024 text/html This patient has a significant past medical history for PE, and sleep apnea on CPAP. He presents to the office with a complaint of bilateral otalgia tinnitus and sinus headache onset for 3 days. He did an at home COVID test resulting negative. He reports that he has not taken any ptux-juw-[id number] medications for symptom relief. Denies any hearing loss. Ira Schmid, STRAIGHT KNIFE CUTTER MACHINE [address] [facility], [facility] [address], [place], [address], [facility] [employer] 07/23/2024 16:26:56
--- OUTSIDE RECORDS SUMMARY | 2024-11-07 09:27 | XMS_ITS | Clinical Summary ---
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 Will follow with FAF and OCT, can consider therapy if CNV recurs or the number of spots increases. 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 Gender Identity Not on file Sexual Orientation Not on file Obstetrics History Plan of Treatment Health Maintenance Due Date Last Done Comments Colon Cancer Screening-Colonoscopy 1956 Depression Screening 1956 Fall Risk Assessment 1956 Hepatitis C Screening 1956 Prostate Cancer Screening-PSA 1956 DTaP/Tdap/Td Vaccine (1 - Tdap) 1967 Hepatitis B Screening 1974 Zoster Vaccine (1 of 2) 2006 Abdominal Aortic Aneurysm (AAA) Screen 2021 Pneumococcal vaccine 65+ (1 of 1 - PCV) 2021 Well Visit 65+ 2021 Influenza Vaccine (#1) 2024 Insurance MEDICARE SOLUTIONS Care Teams Customer Complaint Clerk Relationship Specialty Start Date End Date Biju Ang MD [address] [facility] [address] [place] [address] PCP - General Internal Medicine 01/22/23
--- OUTSIDE RECORDS SUMMARY | 2024-11-07 09:27 | XMS_ITS | Referral Summary ---
Author Organization [facility] Address [address] [place] [address] Care Team Providers Care Electro Mechanical Technologist Name Role Phone Biju Ang MD Primary Care Provider [phone] Allergies No known active allergies Medications metoprolol [...] recurs or the number of spots increases. 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 [address] [place] [address] Care Teams Electro Mechanical Technologist Relationship Specialty Start Date End Date Biju Ang MD [address] [place] [address] PCP - General Internal Medicine 01/22/23
== END 2024-11-02 11:30 | disposition home or self-care (01) ==
PROVIDERS: PCP Internal Medicine; Visit Provider Internal Medicine Gastroenterology
PROC: 0DJD8ZZ Inspection of Lower Intestinal Tract, Via Natural or Artificial Opening Endoscopic (ICD-10-PCS; CPT 45378; principal; 2024-11-02 11:00)
DX: Z12.11 Encounter for screening for malignant neoplasm of colon (principal); D12.2 Benign neoplasm of ascending colon; K64.8 Other hemorrhoids; K57.30 Diverticulosis of large intestine without perforation or abscess without bleeding; I10 Essential (primary) hypertension; G47.33 Obstructive sleep apnea (adult) (pediatric); Z79.01 Long term (current) use of anticoagulants; Z99.89 Dependence on other enabling machines and devices; Z98.890 Other specified postprocedural states; Z86.711 Personal history of pulmonary embolism; Z80.0 Family history of malignant neoplasm of digestive organs
CPT/HCPCS: 45385; 88305; J2003; J2704; J7120

== ENCOUNTER 2025-02-08 10:26 | Outpatient (CLI) | payer MEDICARE, SELFPAY ==
--- NOTE | ~2025-02-08 | US_ITS ---
EXAMINATION: US thyroid DATE: 02/08/2025 10:43 INDICATION: Nontoxic single thyroid nodule. TECHNIQUE: Multiple ultrasound images of the thyroid were obtained. COMPARISON: None. FINDINGS: The right thyroid lobe measures 5.5 x 2.4 x 2.4 cm. The left thyroid lobe measures 4.4 x 1.5 x 1.5 c m. In the right thyroid lobe, there is a 2.9 cm solid, hypoechoic, wider than tall nodule with lobul ar margin without echogenic foci (TI-RADS TR4). In the thyroid isthmus, there is a 7 mm solid, hypoec hoic, wider than tall nodule with ill-defined margin and macrocalcifications (TR4). IMPRESSION: 1. Thyroid nodules. Ultrasound-guided fine-needle aspiration of the 2.9 cm right thyroid nodule is re commended. Reviewed, dictated and finalized at location A. IMPRESSION: 1. Thyroid nodules. Ultrasound-guided fine-needle aspiration of the 2.9 cm righ t thyroid nodule is recommended.
== END 2025-02-08 10:27 | disposition home or self-care (01) ==
PROVIDERS: PCP Internal Medicine; Visit Provider Internal Medicine
DX: E04.2 Nontoxic multinodular goiter (principal)
CPT/HCPCS: 76536

== ENCOUNTER 2025-02-10 13:51 | Outpatient (CLI) | payer MEDICARE, SELFPAY ==
--- NOTE | ~2025-02-10 | MR_ITS ---
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 Sequences included coronal T2-weighted SS-FSE, coronal and axial FS 2D-F IESTA, axial STIR FSE, axial T2-weighted SS-FSE, axial T2-weighted FS SS-FSE, axial diffusion-weighte d SE, axial dual-echo T1-weighted FSPGR, and axial and coronal T1-weighted LAVA. Postcontrast axial T 1-weighted LAVA images were obtained in a time course. Postcontrast coronal T1-weighted LAVA images w ere obtained. COMPARISON: CT dated 08/14/2023 and MRI dated 03/04/2023 FINDINGS: Heart size is normal. No pericardial or pleural effusion. Mild diffuse hepatic steatosis. There are c ouple T2 hyperintense hemangiomas measuring 5.7 cm in the lateral segment of the left hepatic lobe an d 2.5 cm in the posterior right hepatic lobe each of which which demonstrates characteristic peripher al discontiguous puddling of contrast which progressively fills in on the delayed imaging. Nonspecifi c mild splenomegaly measuring 13.4 cm maximal length likely related to body habitus. Gallbladder and bilateral adrenal glands are normal. Unchanged likely benign 5 mm cystic lesion at the tail of the pa ncreas without evident solid enhancing component. 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 No evident enhancing soft tissue nodules to suggest residual or locally recurrent disease. Unchanged 1.2 cm T2 hyperintense nonenhancing right renal cyst. Visualized portions of mike ls are unremarkable including a normal appendix. No pathologically enlarged abdominal or upper pelvic lymphadenopathy. Mild lumbar and moderate lower thoracic spondylosis. No concerning bone lesions malaika ntified. IMPRESSION: 1. Postoperative change of partial nephrectomy at the lateral mid left kidney with no evident residua l, locally recurrent or metastatic disease. 2. Unchanged 5 mm simple pancreatic cystic lesion at the tail the pancreas. Recommend two-year follow -up pre and postcontrast MRI. Reviewed, dictated and finalized at location B. IMPRESSION: 1. Postoperative change of partial nephrectomy at the lateral mid left kidney w ith no evident residual, locally recurrent or metastatic disease. 2. Unchanged 5 mm simple pancreatic cystic lesion at the tail the pancreas. Rec ommend two-year follow-up pre and postcontrast MRI.
== END 2025-02-10 13:52 | disposition home or self-care (01) ==
LOC: MICIMG 13:51
PROVIDERS: PCP Internal Medicine; Visit Provider Urology
DX: C64.2 Malignant neoplasm of left kidney, except renal pelvis (principal); Z90.5 Acquired absence of kidney; K86.2 Cyst of pancreas
CPT/HCPCS: 74183; A9577